=== PATIENT | male | born 1950 | race Caucasian/White ===

== ENCOUNTER → 2024-07-20 | Outpatient (CLI) | payer MEDICARE, BC, SELFPAY ==
[2024-07-20 13:06] LABS: Collection Type, Urine Clean Catch; Squamous Epithelial Cell,Urine 0 /hpf (0-5)
[2024-07-20 13:20] LABS: Basophils # (Auto) 0.1 Thou/mm3 (0.0-0.2); Basophils % (Auto) 1 % (0-2.5); Eosinophils # (Auto) 0.1 Thou/mm3 (0.0-0.5); Eosinophils % (Auto) 1 % (0-10); Hematocrit 44.1 % (41.0-53.0); Hemoglobin 14.1 g/dL (13.5-16.0); Immature Granulocytes % (Auto) 1 % (0-0); Immature Granulocytes Auto 0.08 Thou/mm3 (0.00-0.00); Lymphocytes % (Auto) 6 % (10-50); Mean Corpuscular Hemoglobin 28.3 pg (25.0-35.0); Mean Corpuscular Volume 88 fL (80-100); Monocytes # (Auto) 2.1 Thou/mm3 (0.0-0.8); Monocytes % (Auto) 14 % (0-12); Neutrophils % (Auto) 78 % (37-80); Nucleated Red Blood Cell % 0 /100 WBC (0); Platelet Count 300 Thou/mm3 (140-440); RDW Standard Deviation 46.6 fL (35.1-43.9); Red Blood Count 4.99 Miln/mm3 (4.50-5.90); White Blood Count 15.4 Thou/mm3 (3.8-10.6)
[2024-07-20 13:24] LABS: Bilirubin,Urine Negative (Negative); Blood,Urine 1+ (Negative); Clarity,Urine Clear (Clear/Hazy); Color,Urine Lt-Yellow (Lt Yel-Yel); Glucose, Urine Negative (Negative); Ketones,Urine Negative (Negative); Leukocyte Esterase,Urine Negative (Negative); Nitrite,Urine Negative (Negative); Protein,Urine Negative (Neg - Trace); RBC,Urine 16 /hpf (0-3); Specific Gravity,Urine 1.018 (1.001-1.035); Urobilinogen,Urine Negative mg/dL (0.0-1.0); WBC,Urine 1 /hpf (0-5)
[2024-07-20 13:31] LABS: Alanine Aminotransferase 17 U/L (10-49); Albumin, Serum 4.7 gm/dL (3.4-4.8); Albumin/Globulin Ratio 2.5 (1.2-2.2); Alkaline Phosphatase 81 U/L (46-116); Anion Gap 5 (7-16); BUN/Creatinine Ratio 17 Ratio (12-20); Bilirubin,Total 0.6 mg/dL (0.3-1.2); Blood Urea Nitrogen 29 mg/dL (9-23); Calcium 9.7 mg/dL (8.3-10.6); Calcium (Corrected) 9.7 mg/dL (8.5-10.1); Carbon Dioxide 28.9 mMol/L (20.0-31.0); Chloride 100 mMol/L (98-107); Cholesterol 171 mg/dL (132-200); Creatinine (Component) 1.7 mg/dL (0.6-1.3); Globulin 1.9 gm/dL (2.3-3.5); Glucose 111 mg/dL (74-106); Glucose Estimated Average 117 mg/dL (80-131); HDL Cholesterol 34 mg/dL (40-60); Hemoglobin A1C 5.7 % Hgb (4.8-6.0); LDL Cholesterol,Calculated 89 mg/dL (0-130); Osmolality,Calculated 275 (275-295); Potassium 4.5 mMol/L (3.4-5.1); Sodium 134 mMol/L (136-145); Total Protein 6.6 gm/dL (5.7-8.2); Triglycerides 240 mg/dL (30-150); eGFR 42 See Note
[2024-07-20 13:41] LABS: Aspartate Amino Transferase 14 U/L (0-34)
== END | disposition home or self-care (01) ==
LOC: COPL 12:29
PROVIDERS: PCP Internal Medicine; Referring Provider Internal Medicine; Visit Provider Internal Medicine
DX: N17.9 Acute kidney failure, unspecified (principal); I10 Essential (primary) hypertension; E78.5 Hyperlipidemia, unspecified; R73.03 Prediabetes
CPT/HCPCS: 36415; 80053; 80061; 81001; 83036; 85025

== ENCOUNTER → 2024-08-02 | Outpatient (CLI) | payer MEDICARE, BC, SELFPAY ==
--- NOTE | 2024-08-02 10:15 | XR_ITS ---
Examination: Retroperitoneal ultrasound, complete Technique: Multiple high resolution grayscale images of the retroperitoneum obtained, including kidneys and bladder. Exam date and time:August 02, 2024 1106 hours Comparison December 30, 2022 INDICATIONS: History left renal cancer, nephrectomy one year ago FINDINGS: Right kidney 14.4 x 5.8 x 6.0 cm renal cortex 1.9 cm Moderate renal parenchymal scar formation Multiple benign cysts, the largest in the lower pole 4.4 x 4.2 x 4.0 cm Absent left kidney No bladder mass or bladder calculi Bladder prevoid volume 387 cc postvoid volume 78 cc Prostate 4.3 x 3.9 x 5.1 cm: 44 cc no prostate nodules IMPRESSION: Benign right renal cysts Moderate right renal parenchymal scar formation Absent left kidney Moderate prostatomegaly
== END | disposition home or self-care (01) ==
PROVIDERS: PCP Internal Medicine; Referring Provider Internal Medicine; Visit Provider Internal Medicine
DX: N28.1 Cyst of kidney, acquired (principal); N28.89 Other specified disorders of kidney and ureter; N40.0 Benign prostatic hyperplasia without lower urinary tract symptoms; Z90.5 Acquired absence of kidney
CPT/HCPCS: 76770

== ENCOUNTER → 2024-09-07 | Outpatient (CLI) | payer MEDICARE, BC, SELFPAY ==
[2024-09-07 11:32] LABS: Basophils # (Auto) 0.1 Thou/mm3 (0.0-0.2); Basophils % (Auto) 2 % (0-2.5); Eosinophils # (Auto) 0.2 Thou/mm3 (0.0-0.5); Eosinophils % (Auto) 3 % (0-10); Hematocrit 43.4 % (41.0-53.0); Immature Granulocytes % (Auto) 1 % (0-0); Immature Granulocytes Auto 0.04 Thou/mm3 (0.00-0.00); Lymphocytes # (Auto) 0.9 Thou/mm3 (1.0-4.8); Lymphocytes % (Auto) 12 % (10-50); Mean Corpuscular HGB Conc 32.3 g/dl (31.0-37.0); Mean Corpuscular Hemoglobin 27.8 pg (25.0-35.0); Mean Corpuscular Volume 86 fL (80-100); Monocytes # (Auto) 0.9 Thou/mm3 (0.0-0.8); Monocytes % (Auto) 13 % (0-12); Neutrophils % (Auto) 71 % (37-80); Nucleated Red Blood Cell % 0 /100 WBC (0); Platelet Count 297 Thou/mm3 (140-440); RDW Standard Deviation 48.8 fL (35.1-43.9); Red Blood Count 5.03 Miln/mm3 (4.50-5.90); White Blood Count 7.1 Thou/mm3 (3.8-10.6)
[2024-09-07 12:02] LABS: Alanine Aminotransferase 19 U/L (10-49); Albumin, Serum 4.5 gm/dL (3.4-4.8); Albumin/Globulin Ratio 2.5 (1.2-2.2); Alkaline Phosphatase 74 U/L (46-116); Anion Gap 9 (7-16); Aspartate Amino Transferase 14 U/L (0-34); BUN/Creatinine Ratio 20 Ratio (12-20); Bilirubin,Total 0.7 mg/dL (0.3-1.2); Blood Urea Nitrogen 34 mg/dL (9-23); Calcium 9.9 mg/dL (8.3-10.6); Calcium (Corrected) 9.9 mg/dL (8.5-10.1); Carbon Dioxide 28.1 mMol/L (20.0-31.0); Chloride 102 mMol/L (98-107); Creatinine (Component) 1.7 mg/dL (0.6-1.3); Globulin 1.8 gm/dL (2.3-3.5); Glucose 111 mg/dL (74-106); Osmolality,Calculated 286 (275-295); Potassium 4.4 mMol/L (3.4-5.1); Sodium 139 mMol/L (136-145); Total Protein 6.3 gm/dL (5.7-8.2); eGFR 42 See Note
[2024-09-17 13:49] LABS: Immunoglobulin G 773 mg/dL (600-1540)
[2024-09-19 06:58] LABS: Immunoglobulin A 24 mg/dL (70-320); Immunoglobulin M 8 mg/dL (50-300)
== END | disposition home or self-care (01) ==
LOC: COPL 10:31
PROVIDERS: PCP Internal Medicine; Referring Provider Internal Medicine Hematology & Oncology; Visit Provider Internal Medicine Hematology & Oncology
DX: C91.10 Chronic lymphocytic leukemia of B-cell type not having achieved remission (principal)
CPT/HCPCS: 36415; 80053; 82784; 85025

== ENCOUNTER → 2024-09-21 | Outpatient (CLI) | payer MEDICARE, BC, SELFPAY ==
[2024-09-21 14:05] LABS: Basophils # (Auto) 0.1 Thou/mm3 (0.0-0.2); Basophils % (Auto) 1 % (0-2.5); Eosinophils # (Auto) 0.2 Thou/mm3 (0.0-0.5); Eosinophils % (Auto) 2 % (0-10); Hematocrit 42.7 % (41.0-53.0); Hemoglobin 13.8 g/dL (13.5-16.0); Immature Granulocytes % (Auto) 0 % (0-0); Immature Granulocytes Auto 0.03 Thou/mm3 (0.00-0.00); Lymphocytes # (Auto) 1.1 Thou/mm3 (1.0-4.8); Lymphocytes % (Auto) 17 % (10-50); Mean Corpuscular HGB Conc 32.3 g/dl (31.0-37.0); Mean Corpuscular Hemoglobin 27.9 pg (25.0-35.0); Mean Corpuscular Volume 86 fL (80-100); Monocytes # (Auto) 0.9 Thou/mm3 (0.0-0.8); Monocytes % (Auto) 13 % (0-12); Neutrophils # (Auto) 4.6 Thou/mm3 (1.8-7.7); Neutrophils % (Auto) 67 % (37-80); Nucleated Red Blood Cell % 0 /100 WBC (0); Platelet Count 310 Thou/mm3 (140-440); RDW Standard Deviation 48.2 fL (35.1-43.9); Red Blood Count 4.95 Miln/mm3 (4.50-5.90); White Blood Count 6.8 Thou/mm3 (3.8-10.6)
[2024-09-21 14:13] LABS: Alanine Aminotransferase 23 U/L (10-49); Albumin, Serum 4.6 gm/dL (3.4-4.8); Albumin/Globulin Ratio 2.3 (1.2-2.2); Alkaline Phosphatase 83 U/L (46-116); Anion Gap 8 (7-16); Aspartate Amino Transferase 16 U/L (0-34); BUN/Creatinine Ratio 16 Ratio (12-20); Bilirubin,Total 0.5 mg/dL (0.3-1.2); Blood Urea Nitrogen 26 mg/dL (9-23); Calcium 9.6 mg/dL (8.3-10.6); Calcium (Corrected) 9.6 mg/dL (8.5-10.1); Chloride 101 mMol/L (98-107); Creatinine (Component) 1.6 mg/dL (0.6-1.3); Glucose 118 mg/dL (74-106); Osmolality,Calculated 281 (275-295); Potassium 4.3 mMol/L (3.4-5.1); Sodium 138 mMol/L (136-145); Total Protein 6.6 gm/dL (5.7-8.2); eGFR 45 See Note
[2024-09-29 08:52] LABS: Immunoglobulin G 882 mg/dL (600-1540)
[2024-09-30 06:44] LABS: Immunoglobulin A 26 mg/dL (70-320); Immunoglobulin M 8 mg/dL (50-300)
== END | disposition home or self-care (01) ==
LOC: COPL 13:06
PROVIDERS: PCP Internal Medicine; Referring Provider Internal Medicine Hematology & Oncology; Visit Provider Internal Medicine Hematology & Oncology
DX: C91.10 Chronic lymphocytic leukemia of B-cell type not having achieved remission (principal)
CPT/HCPCS: 36415; 80053; 82784; 85025

== ENCOUNTER → 2024-09-28 | Outpatient (CLI) | payer MEDICARE, BC, SELFPAY ==
[2024-09-28 13:26] LABS: Alanine Aminotransferase 18 U/L (10-49); Albumin, Serum 4.8 gm/dL (3.4-4.8); Albumin/Globulin Ratio 2.4 (1.2-2.2); Alkaline Phosphatase 92 U/L (46-116); Anion Gap 9 (7-16); Aspartate Amino Transferase 15 U/L (0-34); BUN/Creatinine Ratio 16 Ratio (12-20); Bilirubin,Total 0.7 mg/dL (0.3-1.2); Blood Urea Nitrogen 29 mg/dL (9-23); Calcium 10.1 mg/dL (8.3-10.6); Calcium (Corrected) 10.1 mg/dL (8.5-10.1); Carbon Dioxide 29.5 mMol/L (20.0-31.0); Chloride 99 mMol/L (98-107); Creatinine (Component) 1.8 mg/dL (0.6-1.3); Glucose 100 mg/dL (74-106); Osmolality,Calculated 279 (275-295); Potassium 4.4 mMol/L (3.4-5.1); Sodium 137 mMol/L (136-145); Total Protein 6.8 gm/dL (5.7-8.2); eGFR 39 See Note
[2024-09-28 13:56] LABS: Basophils # (Auto) 0.1 Thou/mm3 (0.0-0.2); Basophils % (Auto) 1 % (0-2.5); Eosinophils # (Auto) 0.2 Thou/mm3 (0.0-0.5); Eosinophils % (Auto) 2 % (0-10); Hematocrit 45.4 % (41.0-53.0); Hemoglobin 14.5 g/dL (13.5-16.0); Immature Granulocytes % (Auto) 1 % (0-0); Immature Granulocytes Auto 0.07 Thou/mm3 (0.00-0.00); Lymphocytes % (Auto) 11 % (10-50); Mean Corpuscular HGB Conc 31.9 g/dl (31.0-37.0); Mean Corpuscular Hemoglobin 28.3 pg (25.0-35.0); Mean Corpuscular Volume 89 fL (80-100); Monocytes # (Auto) 1.5 Thou/mm3 (0.0-0.8); Monocytes % (Auto) 16 % (0-12); Neutrophils # (Auto) 6.6 Thou/mm3 (1.8-7.7); Neutrophils % (Auto) 70 % (37-80); Nucleated Red Blood Cell % 0 /100 WBC (0); Platelet Count 354 Thou/mm3 (140-440); RDW Standard Deviation 49.7 fL (35.1-43.9); Red Blood Count 5.13 Miln/mm3 (4.50-5.90); White Blood Count 9.5 Thou/mm3 (3.8-10.6)
[2024-10-07 07:02] LABS: Immunoglobulin G 817 mg/dL (600-1540)
[2024-10-10 06:37] LABS: Immunoglobulin A 25 mg/dL (70-320); Immunoglobulin M 8 mg/dL (50-300)
== END | disposition home or self-care (01) ==
LOC: COPL 11:24
PROVIDERS: PCP Internal Medicine; Referring Provider Internal Medicine Hematology & Oncology; Visit Provider Internal Medicine Hematology & Oncology
DX: C91.10 Chronic lymphocytic leukemia of B-cell type not having achieved remission (principal)
CPT/HCPCS: 36415; 80053; 82784; 85025

== ENCOUNTER → 2024-10-19 | Outpatient (CLI) | payer MEDICARE, BC, SELFPAY ==
[2024-10-19 10:36] LABS: Basophils # (Auto) 0.1 Thou/mm3 (0.0-0.2); Basophils % (Auto) 1 % (0-2.5); Eosinophils # (Auto) 0.2 Thou/mm3 (0.0-0.5); Eosinophils % (Auto) 2 % (0-10); Hemoglobin 13.9 g/dL (13.5-16.0); Immature Granulocytes % (Auto) 1 % (0-0); Immature Granulocytes Auto 0.04 Thou/mm3 (0.00-0.00); Lymphocytes # (Auto) 1.3 Thou/mm3 (1.0-4.8); Lymphocytes % (Auto) 15 % (10-50); Mean Corpuscular HGB Conc 32.3 g/dl (31.0-37.0); Mean Corpuscular Hemoglobin 28.3 pg (25.0-35.0); Mean Corpuscular Volume 88 fL (80-100); Monocytes # (Auto) 1.1 Thou/mm3 (0.0-0.8); Monocytes % (Auto) 12 % (0-12); Neutrophils # (Auto) 6.1 Thou/mm3 (1.8-7.7); Neutrophils % (Auto) 69 % (37-80); Nucleated Red Blood Cell % 0 /100 WBC (0); Platelet Count 301 Thou/mm3 (140-440); RDW Standard Deviation 52.2 fL (35.1-43.9); Red Blood Count 4.91 Miln/mm3 (4.50-5.90); White Blood Count 8.8 Thou/mm3 (3.8-10.6)
[2024-10-19 10:50] LABS: Alanine Aminotransferase 15 U/L (10-49); Albumin, Serum 4.4 gm/dL (3.4-4.8); Albumin/Globulin Ratio 2.1 (1.2-2.2); Alkaline Phosphatase 83 U/L (46-116); Anion Gap 8 (7-16); Aspartate Amino Transferase 16 U/L (0-34); BUN/Creatinine Ratio 12 Ratio (12-20); Bilirubin,Total 0.8 mg/dL (0.3-1.2); Blood Urea Nitrogen 17 mg/dL (9-23); Calcium 10.3 mg/dL (8.3-10.6); Calcium (Corrected) 10.3 mg/dL (8.5-10.1); Carbon Dioxide 29.3 mMol/L (20.0-31.0); Chloride 106 mMol/L (98-107); Creatinine (Component) 1.4 mg/dL (0.6-1.3); Globulin 2.1 gm/dL (2.3-3.5); Glucose 103 mg/dL (74-106); Osmolality,Calculated 286 (275-295); Potassium 4.5 mMol/L (3.4-5.1); Sodium 143 mMol/L (136-145); Total Protein 6.5 gm/dL (5.7-8.2); eGFR 53 See Note
[2024-10-28 06:23] LABS: IgA, Serum* 24 mg/dL (70-320); IgG, Serum* 776 mg/dL (600-1540); IgM, Serum* 10 mg/dL (50-300)
== END | disposition home or self-care (01) ==
LOC: COPL 08:59
PROVIDERS: PCP Internal Medicine; Referring Provider Internal Medicine Hematology & Oncology; Visit Provider Internal Medicine Hematology & Oncology
DX: C91.10 Chronic lymphocytic leukemia of B-cell type not having achieved remission (principal)
CPT/HCPCS: 36415; 80053; 82784; 85025

== ENCOUNTER → 2024-11-09 | Outpatient (CLI) | payer MEDICARE, BC, SELFPAY ==
[2024-11-09 11:15] LABS: Basophils # (Auto) 0.1 Thou/mm3 (0.0-0.2); Basophils % (Auto) 1 % (0-2.5); Eosinophils # (Auto) 0.2 Thou/mm3 (0.0-0.5); Eosinophils % (Auto) 2 % (0-10); Hematocrit 44.6 % (41.0-53.0); Hemoglobin 13.8 g/dL (13.5-16.0); Immature Granulocytes % (Auto) 0 % (0-0); Immature Granulocytes Auto 0.03 Thou/mm3 (0.00-0.00); Lymphocytes # (Auto) 3.5 Thou/mm3 (1.0-4.8); Lymphocytes % (Auto) 35 % (10-50); Mean Corpuscular HGB Conc 30.9 g/dl (31.0-37.0); Mean Corpuscular Volume 91 fL (80-100); Monocytes % (Auto) 10 % (0-12); Neutrophils # (Auto) 5.3 Thou/mm3 (1.8-7.7); Neutrophils % (Auto) 52 % (37-80); Nucleated Red Blood Cell % 0 /100 WBC (0); Platelet Count 267 Thou/mm3 (140-440); RDW Standard Deviation 52.6 fL (35.1-43.9); Red Blood Count 4.93 Miln/mm3 (4.50-5.90); White Blood Count 10.1 Thou/mm3 (3.8-10.6)
[2024-11-09 11:35] LABS: Alanine Aminotransferase 13 U/L (10-49); Albumin, Serum 4.3 gm/dL (3.4-4.8); Albumin/Globulin Ratio 2.4 (1.2-2.2); Alkaline Phosphatase 73 U/L (46-116); Anion Gap 6 (7-16); Aspartate Amino Transferase 15 U/L (0-34); BUN/Creatinine Ratio 10 Ratio (12-20); Bilirubin,Total 0.9 mg/dL (0.3-1.2); Blood Urea Nitrogen 16 mg/dL (9-23); Carbon Dioxide 28.9 mMol/L (20.0-31.0); Chloride 103 mMol/L (98-107); Creatinine (Component) 1.6 mg/dL (0.6-1.3); Globulin 1.8 gm/dL (2.3-3.5); Glucose 109 mg/dL (74-106); Osmolality,Calculated 277 (275-295); Potassium 4.8 mMol/L (3.4-5.1); Sodium 138 mMol/L (136-145); Total Protein 6.1 gm/dL (5.7-8.2); eGFR 45 See Note
[2024-11-18 07:05] LABS: Immunoglobulin G 783 mg/dL (600-1540)
[2024-11-21 06:53] LABS: Immunoglobulin A 27 mg/dL (70-320); Immunoglobulin M 10 mg/dL (50-300)
== END | disposition home or self-care (01) ==
LOC: COPL 09:57
PROVIDERS: PCP Internal Medicine; Referring Provider Internal Medicine Hematology & Oncology; Visit Provider Internal Medicine Hematology & Oncology
DX: C91.10 Chronic lymphocytic leukemia of B-cell type not having achieved remission (principal)
CPT/HCPCS: 36415; 80053; 82784; 85025

== ENCOUNTER → 2024-12-06 | Outpatient (CLI) | payer MEDICARE, BC, SELFPAY ==
[2024-12-06 12:19] LABS: Basophils # (Auto) 0.2 Thou/mm3 (0.0-0.2); Basophils % (Auto) 1 % (0-2.5); Eosinophils # (Auto) 0.3 Thou/mm3 (0.0-0.5); Eosinophils % (Auto) 2 % (0-10); Hematocrit 44.4 % (41.0-53.0); Hemoglobin 14.3 g/dL (13.5-16.0); Immature Granulocytes % (Auto) 0 % (0-0); Immature Granulocytes Auto 0.05 Thou/mm3 (0.00-0.00); Lymphocytes % (Auto) 30 % (10-50); Mean Corpuscular HGB Conc 32.2 g/dl (31.0-37.0); Mean Corpuscular Hemoglobin 27.7 pg (25.0-35.0); Mean Corpuscular Volume 86 fL (80-100); Monocytes # (Auto) 2.1 Thou/mm3 (0.0-0.8); Monocytes % (Auto) 15 % (0-12); Neutrophils % (Auto) 51 % (37-80); Nucleated Red Blood Cell % 0 /100 WBC (0); Platelet Count 272 Thou/mm3 (140-440); RDW Standard Deviation 45.8 fL (35.1-43.9); Red Blood Count 5.17 Miln/mm3 (4.50-5.90); White Blood Count 13.6 Thou/mm3 (3.8-10.6)
[2024-12-06 12:33] LABS: Alanine Aminotransferase 15 U/L (10-49); Albumin, Serum 4.3 gm/dL (3.4-4.8); Alkaline Phosphatase 118 U/L (46-116); Anion Gap 7 (7-16); Aspartate Amino Transferase 15 U/L (0-34); BUN/Creatinine Ratio 15 Ratio (12-20); Bilirubin,Total 0.7 mg/dL (0.3-1.2); Blood Urea Nitrogen 26 mg/dL (9-23); Calcium 9.8 mg/dL (8.3-10.6); Calcium (Corrected) 9.8 mg/dL (8.5-10.1); Carbon Dioxide 29.3 mMol/L (20.0-31.0); Chloride 101 mMol/L (98-107); Creatinine (Component) 1.7 mg/dL (0.6-1.3); Globulin 2.1 gm/dL (2.3-3.5); Glucose 106 mg/dL (74-106); Osmolality,Calculated 278 (275-295); Potassium 4.6 mMol/L (3.4-5.1); Sodium 137 mMol/L (136-145); Total Protein 6.4 gm/dL (5.7-8.2); eGFR 42 See Note
[2024-12-10 08:50] LABS: Immunoglobulin G 774 mg/dL (600-1540)
[2024-12-12 06:44] LABS: Immunoglobulin A 28 mg/dL (70-320); Immunoglobulin M 18 mg/dL (50-300)
== END | disposition home or self-care (01) ==
LOC: COPL 11:29
PROVIDERS: PCP Internal Medicine; Referring Provider Internal Medicine Hematology & Oncology; Visit Provider Internal Medicine Hematology & Oncology
DX: C91.10 Chronic lymphocytic leukemia of B-cell type not having achieved remission (principal)
CPT/HCPCS: 36415; 80053; 82784; 85025

== ENCOUNTER → 2024-12-27 | Outpatient (CLI) | payer MEDICARE, BC, SELFPAY ==
[2024-12-27 11:53] LABS: Basophils # (Auto) 0.2 Thou/mm3 (0.0-0.2); Basophils % (Auto) 1 % (0-2.5); Eosinophils # (Auto) 0.5 Thou/mm3 (0.0-0.5); Eosinophils % (Auto) 3 % (0-10); Hemoglobin 14.4 g/dL (13.5-16.0); Immature Granulocytes % (Auto) 0 % (0-0); Immature Granulocytes Auto 0.08 Thou/mm3 (0.00-0.00); Lymphocytes # (Auto) 6.5 Thou/mm3 (1.0-4.8); Lymphocytes % (Auto) 36 % (10-50); Mean Corpuscular Hemoglobin 27.7 pg (25.0-35.0); Mean Corpuscular Volume 87 fL (80-100); Monocytes # (Auto) 3.7 Thou/mm3 (0.0-0.8); Monocytes % (Auto) 20 % (0-12); Neutrophils # (Auto) 7.3 Thou/mm3 (1.8-7.7); Neutrophils % (Auto) 40 % (37-80); Nucleated Red Blood Cell % 0 /100 WBC (0); Platelet Count 295 Thou/mm3 (140-440); RDW Standard Deviation 46.1 fL (35.1-43.9); Red Blood Count 5.19 Miln/mm3 (4.50-5.90); White Blood Count 18.3 Thou/mm3 (3.8-10.6)
[2024-12-27 12:46] LABS: Alanine Aminotransferase 23 U/L (10-49); Albumin, Serum 4.8 gm/dL (3.4-4.8); Albumin/Globulin Ratio 2.3 (1.2-2.2); Alkaline Phosphatase 98 U/L (46-116); Anion Gap 6 (7-16); Aspartate Amino Transferase 18 U/L (0-34); Bilirubin,Total 0.5 mg/dL (0.3-1.2); Blood Urea Nitrogen 29 mg/dL (9-23); Calcium 9.7 mg/dL (8.3-10.6); Calcium (Corrected) 9.7 mg/dL (8.5-10.1); Carbon Dioxide 30.1 mMol/L (20.0-31.0); Chloride 100 mMol/L (98-107); Globulin 2.1 gm/dL (2.3-3.5); Glucose 96 mg/dL (74-106); Osmolality,Calculated 277 (275-295); Potassium 4.3 mMol/L (3.4-5.1); Sodium 136 mMol/L (136-145); Total Protein 6.9 gm/dL (5.7-8.2)
[2024-12-27 13:01] LABS: BUN/Creatinine Ratio 16 Ratio (12-20); Creatinine (Component) 1.8 mg/dL (0.6-1.3); eGFR 39 See Note
[2024-12-27 13:09] LABS: Path Review Blood Smear Sent to Pathologist
[2024-12-30 22:05] LABS: Immunoglobulin G 852 mg/dL (600-1540)
[2025-01-02 07:17] LABS: Immunoglobulin A 29 mg/dL (70-320); Immunoglobulin M 26 mg/dL (50-300)
== END | disposition home or self-care (01) ==
LOC: COPL 11:07
PROVIDERS: PCP Internal Medicine; Referring Provider Internal Medicine Hematology & Oncology; Visit Provider Internal Medicine Hematology & Oncology
DX: C91.10 Chronic lymphocytic leukemia of B-cell type not having achieved remission (principal)
CPT/HCPCS: 36415; 80053; 82784; 85025

== ENCOUNTER → 2025-01-17 | Outpatient (CLI) | payer MEDICARE, BC, SELFPAY ==
[2025-01-17 12:23] LABS: Basophils # (Auto) 0.1 Thou/mm3 (0.0-0.2); Basophils % (Auto) 1 % (0-2.5); Eosinophils # (Auto) 0.2 Thou/mm3 (0.0-0.5); Eosinophils % (Auto) 2 % (0-10); Hematocrit 43.6 % (41.0-53.0); Hemoglobin 13.9 g/dL (13.5-16.0); Immature Granulocytes % (Auto) 1 % (0-0); Immature Granulocytes Auto 0.14 Thou/mm3 (0.00-0.00); Lymphocytes # (Auto) 2.7 Thou/mm3 (1.0-4.8); Lymphocytes % (Auto) 26 % (10-50); Mean Corpuscular HGB Conc 31.9 g/dl (31.0-37.0); Mean Corpuscular Hemoglobin 27.8 pg (25.0-35.0); Mean Corpuscular Volume 87 fL (80-100); Monocytes # (Auto) 0.9 Thou/mm3 (0.0-0.8); Monocytes % (Auto) 9 % (0-12); Neutrophils # (Auto) 6.4 Thou/mm3 (1.8-7.7); Neutrophils % (Auto) 61 % (37-80); Nucleated Red Blood Cell % 0 /100 WBC (0); Platelet Count 269 Thou/mm3 (140-440); RDW Standard Deviation 47.3 fL (35.1-43.9); White Blood Count 10.4 Thou/mm3 (3.8-10.6)
[2025-01-17 12:35] LABS: Alanine Aminotransferase 16 U/L (10-49); Albumin, Serum 4.4 gm/dL (3.4-4.8); Albumin/Globulin Ratio 2.1 (1.2-2.2); Alkaline Phosphatase 91 U/L (46-116); Anion Gap 6 (7-16); Aspartate Amino Transferase 15 U/L (0-34); BUN/Creatinine Ratio 11 Ratio (12-20); Bilirubin,Total 0.7 mg/dL (0.3-1.2); Blood Urea Nitrogen 20 mg/dL (9-23); Calcium 8.9 mg/dL (8.3-10.6); Calcium (Corrected) 8.9 mg/dL (8.5-10.1); Chloride 104 mMol/L (98-107); Creatinine (Component) 1.8 mg/dL (0.6-1.3); Globulin 2.1 gm/dL (2.3-3.5); Glucose 103 mg/dL (74-106); Osmolality,Calculated 282 (275-295); Potassium 4.1 mMol/L (3.4-5.1); Sodium 140 mMol/L (136-145); Total Protein 6.5 gm/dL (5.7-8.2); eGFR 39 See Note
[2025-01-20 22:04] LABS: Immunoglobulin G 860 mg/dL (600-1540)
[2025-01-24 06:58] LABS: Immunoglobulin A 29 mg/dL (70-320); Immunoglobulin M 25 mg/dL (50-300)
== END | disposition home or self-care (01) ==
LOC: COPL 10:58
PROVIDERS: PCP Internal Medicine; Referring Provider Internal Medicine Hematology & Oncology; Visit Provider Internal Medicine Hematology & Oncology
DX: C91.10 Chronic lymphocytic leukemia of B-cell type not having achieved remission (principal)
CPT/HCPCS: 36415; 80053; 82784; 85025

== ENCOUNTER → 2025-02-09 | Outpatient (CLI) | payer MEDICARE, BC, SELFPAY ==
[2025-02-09 11:38] LABS: Basophils # (Auto) 0.3 Thou/mm3 (0.0-0.2); Basophils % (Auto) 1 % (0-2.5); Eosinophils # (Auto) 0.6 Thou/mm3 (0.0-0.5); Eosinophils % (Auto) 2 % (0-10); Hematocrit 40.4 % (41.0-53.0); Hemoglobin 12.8 g/dL (13.5-16.0); Immature Granulocytes % (Auto) 1 % (0-0); Immature Granulocytes Auto 0.17 Thou/mm3 (0.00-0.00); Lymphocytes # (Auto) 15.5 Thou/mm3 (1.0-4.8); Lymphocytes % (Auto) 58 % (10-50); Mean Corpuscular HGB Conc 31.7 g/dl (31.0-37.0); Mean Corpuscular Hemoglobin 27.4 pg (25.0-35.0); Mean Corpuscular Volume 86 fL (80-100); Monocytes # (Auto) 3.1 Thou/mm3 (0.0-0.8); Monocytes % (Auto) 12 % (0-12); Neutrophils # (Auto) 7.1 Thou/mm3 (1.8-7.7); Neutrophils % (Auto) 27 % (37-80); Nucleated Red Blood Cell % 0 /100 WBC (0); Platelet Count 477 Thou/mm3 (140-440); Red Blood Count 4.68 Miln/mm3 (4.50-5.90); White Blood Count 26.7 Thou/mm3 (3.8-10.6)
[2025-02-09 11:47] LABS: Partial Thromboplastin Time 24.1 Seconds (22.0-36.0); Prothrombin Time 10.8 Seconds (9.0-12.2)
--- NOTE | 2025-02-09 11:53 | EKG_ITS ---
[facility] Test Date: 2025-02-09 Pat Name: ESTEVAN HOLT Department: Room: - Gender: Male Addictions Counselor Assistant: SYLVIA : 1950 Requested By: Regulo Wagoner Order Number: [id number] Reading MD: Regulo Wagoner Measurements Intervals [place] Rate: 70 P: 56 MO: 190 QRS: 2 QRSD: 102 T: -14 QT: 391 QTc: 424 Interpretive Statements SINUS RHYTHM POSSIBLE LEFT VENTRICULAR HYPERTROPHY [VOLTAGE CRITERIA PLUS LAE OR QRS WIDENING] No previous ECG available for comparison /store/S0/[id number]/ecg/[id number].pdf
[2025-02-09 12:04] LABS: Alanine Aminotransferase 12 U/L (10-49); Albumin, Serum 4.2 gm/dL (3.4-4.8); Albumin/Globulin Ratio 2.2 (1.2-2.2); Alkaline Phosphatase 112 U/L (46-116); Anion Gap 10 (7-16); BUN/Creatinine Ratio 16 Ratio (12-20); Bilirubin,Total 0.7 mg/dL (0.3-1.2); Blood Urea Nitrogen 26 mg/dL (9-23); Calcium 9.7 mg/dL (8.3-10.6); Calcium (Corrected) 9.7 mg/dL (8.5-10.1); Carbon Dioxide 28.6 mMol/L (20.0-31.0); Chloride 102 mMol/L (98-107); Creatinine (Component) 1.6 mg/dL (0.6-1.3); Globulin 1.9 gm/dL (2.3-3.5); Glucose 109 mg/dL (74-106); Osmolality,Calculated 286 (275-295); Potassium 4.8 mMol/L (3.4-5.1); Sodium 141 mMol/L (136-145); Total Protein 6.1 gm/dL (5.7-8.2); eGFR 45 See Note
== END | disposition home or self-care (01) ==
LOC: COPL 11:02
PROVIDERS: PCP Internal Medicine; Referring Provider Student in an Organized Health Care Education/Training Program; Visit Provider Student in an Organized Health Care Education/Training Program
DX: Z01.818 Encounter for other preprocedural examination (principal); I70.213 Atherosclerosis of native arteries of extremities with intermittent claudication, bilateral legs
CPT/HCPCS: 36415; 80053; 85025; 85610; 85730; 93005

== ENCOUNTER → 2025-06-08 | Outpatient (CLI) | payer MEDICARE, BC, SELFPAY ==
[2025-06-08 11:36] LABS: Basophils # (Auto) 0.6 Thou/mm3 (0.0-0.2); Basophils % (Auto) 0 % (0-2.5); Eosinophils # (Auto) 0.4 Thou/mm3 (0.0-0.5); Eosinophils % (Auto) 0 % (0-10); Hematocrit 34.7 % (41.0-53.0); Hemoglobin 10.0 g/dL (13.5-16.0); Immature Granulocytes Auto 1.60 Thou/mm3 (0.00-0.00); Lymphocytes # (Auto) 511.9 Thou/mm3 (1.0-4.8); Lymphocytes % (Auto) 74 % (10-50); Mean Corpuscular HGB Conc 28.8 g/dl (31.0-37.0); Mean Corpuscular Hemoglobin 27.9 pg (25.0-35.0); Mean Corpuscular Volume 97 fL (80-100); Monocytes # (Auto) 173.9 Thou/mm3 (0.0-0.8); Monocytes % (Auto) 25 % (0-12); Neutrophils # (Auto) 3.9 Thou/mm3 (1.8-7.7); Neutrophils % (Auto) 1 % (37-80); Nucleated Red Blood Cell # 0.57 Thou/mm3 (0.00-0.00); Nucleated Red Blood Cell % 0 /100 WBC (0); Platelet Count 184 Thou/mm3 (140-440); RDW Standard Deviation 70.8 fL (35.1-43.9); Red Blood Count 3.58 Miln/mm3 (4.50-5.90)
[2025-06-08 12:01] LABS: White Blood Count 750.0 Thou/mm3 (3.8-10.6)
[2025-06-08 12:24] LABS: Path Review Blood Smear Sent to Pathologist
== END | disposition home or self-care (01) ==
LOC: COPL 10:17
PROVIDERS: PCP Internal Medicine; Referring Provider Internal Medicine Cardiovascular Disease; Visit Provider Internal Medicine Cardiovascular Disease
DX: I20.89 Other forms of angina pectoris (principal)
CPT/HCPCS: 36415; 85025

== ENCOUNTER → 2025-06-13 | Outpatient (CLI) | payer MEDICARE, BC, SELFPAY ==
[2025-06-13 08:34] LABS: Basophils # (Auto) 0.5 Thou/mm3 (0.0-0.2); Basophils % (Auto) 0 % (0-2.5); Eosinophils # (Auto) 0.4 Thou/mm3 (0.0-0.5); Eosinophils % (Auto) 0 % (0-10); Hematocrit 32.9 % (41.0-53.0); Hemoglobin 9.2 g/dL (13.5-16.0); Immature Granulocytes Auto 1.26 Thou/mm3 (0.00-0.00); Lymphocytes # (Auto) 593.8 Thou/mm3 (1.0-4.8); Lymphocytes % (Auto) 84 % (10-50); Mean Corpuscular HGB Conc 28.0 g/dl (31.0-37.0); Mean Corpuscular Hemoglobin 26.9 pg (25.0-35.0); Mean Corpuscular Volume 96 fL (80-100); Monocytes # (Auto) 105.6 Thou/mm3 (0.0-0.8); Monocytes % (Auto) 15 % (0-12); Neutrophils # (Auto) 3.2 Thou/mm3 (1.8-7.7); Neutrophils % (Auto) 0 % (37-80); Nucleated Red Blood Cell # 0.44 Thou/mm3 (0.00-0.00); Nucleated Red Blood Cell % 0 /100 WBC (0); Platelet Count 123 Thou/mm3 (140-440); RDW Standard Deviation 70.3 fL (35.1-43.9); Red Blood Count 3.42 Miln/mm3 (4.50-5.90)
[2025-06-13 09:22] LABS: Misc Send Out* See Sep Rpt
[2025-06-13 09:26] LABS: Alanine Aminotransferase 58 U/L (10-49); Albumin, Serum 4.8 gm/dL (3.4-4.8); Albumin/Globulin Ratio 2.1 (1.2-2.2); Alkaline Phosphatase 301 U/L (46-116); Anion Gap 11 (7-16); Aspartate Amino Transferase 47 U/L (0-34); BUN/Creatinine Ratio 10 Ratio (12-20); Bilirubin,Total 0.6 mg/dL (0.3-1.2); Blood Urea Nitrogen 22 mg/dL (9-23); Calcium 10.4 mg/dL (8.3-10.6); Calcium (Corrected) 10.4 mg/dL (8.5-10.1); Carbon Dioxide 26.7 mMol/L (20.0-31.0); Cardiac Risk Estimate 7.4 RATIO (4.0-6.7); Chloride 105 mMol/L (98-107); Cholesterol 184 mg/dL (132-200); Creatinine (Component) 2.2 mg/dL (0.6-1.3); Globulin 2.3 gm/dL (2.3-3.5); Glucose 113 mg/dL (74-106); HDL Cholesterol 25 mg/dL (40-60); Osmolality,Calculated 289 (275-295); Potassium 3.8 mMol/L (3.4-5.1); Sodium 143 mMol/L (136-145); Thyroid Stimulating Hormone 2.28 uIU/mL (0.55-4.78); Total Protein 7.1 gm/dL (5.7-8.2); Uric Acid 10.4 mg/dL (3.7-9.2); eGFR 31 See Note
[2025-06-13 09:39] LABS: White Blood Count 680.4 Thou/mm3 (3.8-10.6)
[2025-06-13 11:01] LABS: LDL Cholesterol,Calculated 120 mg/dL (0-130); Triglycerides 194 mg/dL (30-150)
[2025-06-13 11:30] LABS: PSA Medicare Annual Scrn 0.25 ng/mL (0-4.00)
[2025-06-13 11:37] LABS: Vitamin B12 449 pg/mL (211-911); Vitamin D 25 Hydroxy Total 34.7 ng/mL (7.3-40.2)
[2025-06-13 11:50] LABS: Path Review Blood Smear Sent to Pathologist
== END | disposition home or self-care (01) ==
LOC: COPL 07:55
PROVIDERS: PCP Internal Medicine; Referring Provider Internal Medicine; Visit Provider Internal Medicine Cardiovascular Disease
DX: C91.10 Chronic lymphocytic leukemia of B-cell type not having achieved remission (principal); I12.9 Hypertensive chronic kidney disease with stage 1 through stage 4 chronic kidney disease, or unspecified chronic kidney disease; N18.30 Chronic kidney disease, stage 3 unspecified; E78.5 Hyperlipidemia, unspecified; R73.03 Prediabetes; D51.9 Vitamin B12 deficiency anemia, unspecified; E55.9 Vitamin D deficiency, unspecified
CPT/HCPCS: 36415; 80053; 80061; 81001; 82306; 82607; 83036; 84153; 84443; 84550; 85025; G0103

== ENCOUNTER 2025-07-14 15:15 | Inpatient (IN) | payer MEDICARE, BC, SELFPAY ==
[2025-07-14] VITALS (15 sets, daily range): BP systolic 117–142; BP diastolic 62–74; PULSE 81–115; RESP 14–90; TEMP 38.4–39.6; O2SAT 89–97; BMI 29.8
--- NOTE | 2025-07-14 15:16 | PC.NURSE ---
PT BROUGHT IN BY EMS FOR ALTERED MENTAL STATUS AND HOT TO TOUCH. PER MEDIC FAMILY STATED THAT HE HAS BEEN DECLINING FOR THE PAST FEW DAYS BUT THIS AM PT WAS LETHARGIC AND HARD TO AROUSE. EMS STATES THAT PT HAS DEMENTIA AND IS NORMALLY CONFUSED BUT STATES PT GCS IS 11 AT THIS TIME. PT HAS HISTORY OF LEUKEMIA BUT PER EMS PT IS NOT DOING ANY TREATMENT ANY LONGER. PT IS LETHARGIC BUT OPENS EYES TO VERBAL STIMULI. PT ATTEMPTS TO ANSWER SOME QUESTIONS BUT IS NOTED TO BE CONFUSED. PT IS NOTED TO BE WEAK BUT IS MOVING ALL EXTREMITIES EQUALLY. EYES PERRL. TEMP ON ARRIVAL 103. DR GERMAIN INFORMED. PT IS ON CC MONITOR. 02 SATS ON RA 89-90%. PT PLACED ON 02 NC 3 L WITH INCREASED 02 SAT TO 93%
--- NOTE | 2025-07-14 15:21 | EDNOTE_ITS ---
Altered Mental Status RME/HPI General Chief Complaint: Altered Mental Status Stated Complaint: AMS Time Seen by Provider: 07/14/25 15:20 Arrival date/time: 07/14/25 15:15 Limitations: no limitations RME / HPI RME / HPI narrative: 75 year old male with history of dementia and leukemia (recently discontinued treatments) presents to the ED BIBA from home for altered mental status today. Per medics, family on scene reported decline in mental status in the last several days. Medics state on scene, the patient was altered GCS of 11, required sternal rubbing to wake and respond to questions, and saturating 89% on room air. State they placed the patient on 3L nasal cannula with improvement to low 90s. In the ED, patient reports I feel poorly and feeling hot. Related Data Home Medications ?Medication ?Instructions ?Recorded ?Confirmed Lactobacills gasseri-Bifidobac 1 cap PO DAILY 03/16/18 03/16/18 bifidum,longum 1.5 billion cell capsule ([employer]) alprazolam 0.5 mg tablet,extended 0.5 mg PO QDAY 03/1603/16/18 release 24 hr amlodipine 5 mg-benazepril 10 mg 1 cap PO QDAY 8 03/16/18 capsule losartan 100 1 tab PO QDAY 03/16/1803/16 mg-hydrochlorothiazide 25 mg tablet tamsulosin 0.4 mg capsule 0.4 mg PO DAILY 03/16/18 Allergies Allergy/AdvReac Type Severity Reaction Status Date / Time NKA Allergy Unknown Uncoded 07/14/25 15:22 Review of Systems Review of Systems Systems Reviewed: All systems reviewed, normal except as documented Past Medical History Past Medical History NEUROLOGIC: Positive Dementia CARDIAC: Positive Hypercholesterolemia and Hypertension GASTROINTESTINAL: Positive Diverticulitis OTHER HISTORY: Positive Chemotherapy (NO LONGER ON CHEMO) and Chicken Pox Social History SMOKING STATUS: Unknown if ever smoked ED Exam General Limitations: Present no limitations General appearance: Present in no apparent distress and other (awakens and able to respond to simple questions, complains of feeling poorly, makes poor eye contact) Head Head exam: Present atraumatic, normocephalic and normal inspection Eye Eye exam: Present normal appearance, PERRL and EOMI ENT ENT exam: Present normal exam, normal oropharynx and mucous membranes moist Neck Neck exam: Present normal inspection, full ROM and trachea midline Chest Chest inspection: Present normal inspection and symmetric chest wall rise Respiratory Respiratory exam: Present other (decreased breath sounds over right base ) Cardiovascular Cardiovascular exam: Present regular rate, normal rhythm and normal heart sounds Abdominal Exam Abdominal exam: Present soft and normal bowel sounds Extremities Exam Extremities exam: Present normal inspection and full ROM Back Exam Back exam: Present normal inspection and full ROM Neurological Exam Neurological exam: Present alert (answers some questions ), CN II-XII intact and other (stiff upper and lower extremities, non focal exam ) Psychiatric Psychiatric exam: Present normal affect and normal mood Skin Skin exam: Present warm, dry, intact and normal color Course Quality Measures Current suspected stage: sepsis Possible source: pulmonary Blood cultures orde red: completed in ED Antibiotic ordered: Yes Pertinent labs: 07/14/25 07/14/25 15:30 16:24 Lactic Acid Cancelled Procalcitonin 1.58 H ng/ml (0.0-0.49) sepsis Orders Category Date Time Status Bedside COVID-19 Antigen Test NOW Care 07/14/25 15:50 Active Bedside COVID-19 Antigen Test NOW Care 07/14/25 16:00 Completed COVID-19 Screening Questionnaire NOW Care 07/14/25 17:03 Active Hydroelectric Machinery Mechanic Helper STAT Care 07/14/25 15:35 Active Continuous Pulse Oximetry STAT Care 07/14/25 15:35 Completed Decision to Admit X1 Care 07/14/25 17:02 Active EKG (ED ONLY) *Do not use* NOW Care 07/14/25 15:33 Completed Ceja [Urinary Catheter] QS Care 07/14/25 15:49 Active Ceja to [place] Routine Care 07/14/25 15:37 Ordered IV [Insert IV] NOW Care 07/14/25 15:45 Completed Insert IV NOW Care 07/14/25 15:35 Active NPO STAT Care 07/14/25 15:35 Active Strict Intake and Output Routine Care 07/14/25 15:35 Ordered EKG (ED Only) Stat Exams 07/14/25 15:33 Draft XR chest 1V SEPSIS PROTOCOL Stat Exams 07/14/25 15:37 Completed Arterial Blood Gas Stat Lab 07/14/25 15:48 Completed B-Type Natriuretic Peptide Stat Lab 07/14/25 15:30 Received Blood Culture (Lab) Stat Lab 07/14/25 15:30 Received CBC Stat Lab 07/14/25 15:30 Results Comprehensive Metabolic Panel Stat Lab 07/14/25 15:30 Completed Influenza A & B Rapid Panel Stat Lab 07/14/25 15:50 Completed LDH (Lactate Dehydrogenase) Stat Lab 07/14/25 15:30 Completed Lipase Stat Lab 07/14/25 15:30 Completed Magnesium Stat Lab 07/14/25 15:30 Completed Partial Thromboplastin Time Stat Lab 07/14/25 15:30 Completed Path Review Blood Smear Stat Lab 07/14/25 15:30 Results Phosphorous Stat Lab 07/14/25 15:30 Completed Procalcitonin Stat Lab 07/14/25 15:30 Completed Prothrombin Time with INR Stat Lab 07/14/25 15:30 Completed Troponin I Stat Lab 07/14/25 15:30 Completed Urinalysis, C/S if Indicated Stat Lab 07/14/25 15:52 Completed Acetaminophen Ivpb [Ofirmev Inj] Med 07/14/25 15:34 Discontinued 1,000 mg in 100 ml IV X1 Ondansetron Inj [Zofran Inj] Med 07/14/25 15:34 Active 4 mg IVP Q6HR PRN Pantoprazole Inj [Protonix Inj] Med 07/14/25 15:34 Discontinued 40 mg IVP X1 ONE Ringers Lactated 1000 ml [Lactated Ringers] 2,328 ml Med 07/14/25 15:34 Discontinued IV 2,328 mls/hr cefTRIAXone [Rocephin] 1,000 mg Med 07/14/25 15:34 Discontinued SODIUM CHLORIDE 0.9% (Popper) [Ns 0.9% (P)] 50 ml IV X1 Oxygen Delivery NOW RT 07/14/25 15:35 Active Vital Signs Vital signs: Vital Signs Pulse Rate 115 H 07/14/25 15:16 Altered Mental Status MDM Narrative MDM Narrative:: I, Linnea Hubbard, am scribing for and in the presence of Dr. Skinner. [id number]: I spoke with the and cousin at bedside. We reviewed all the results, analysis, and treatment plans. I explained hospice care, and the states the patient had elected to have no CPR or further treatment for Leukemia. States the patient underwent 15 years of treatment which he discontinued 3-4 months ago. They were receptive and wanting to arrange hospice during this admission. Patient data External records reviewed:: [facility] previous records and EMS form Clinical information provided by:: patient, EMS and family Social determinants that could affect healthcare access:: none Patient has the following chronic illnesses:: dementia and leukemia (recently discontinued treatments) How is presenting disease/condition affected by chronic disease/condition?: exacerbated by Evaluation data The following diagnostics were reviewed and interpreted by me:: lab results, radiology exam(s) and EKG tracing(s) (EKG @ 15:36h, interpreted by me, sinus tachycardia, rate 110, no STEMI. ) Lab and/or radiology exams considered but not ordered:: None Interpretation Summary: Ordering Physician: Tomy Skinner MD Date of Service: 07/14/25 Procedure(s): XR chest 1V SEPSIS PROTOCOL Accession Number(s): [id number] cc: Tomy Skinner MD; Maurciio Navarro MD~ EXAMINATION: AP chest single view TECHNIQUE: AP portable semiupright chest single view Date and time: July 14, 2025, 1605 hours compared to January 24, 2012 INDICATIONS: Sepsis alert today. FINDINGS: Mild enlargement cardiac contour Prominent vascular congestion including central vascular engorgement. No lobar pneumonia. Prominent osteopenia IMPRESSION: Mild heart failure No lobar pneumonia Dictated By: Mauricio Navarro MD Signed By: <Electronically signed by Mauricio Navarro MD in OV> 07/14/25 1654 Medications / Prescriptions Medications or Prescriptions considered but not ordered:: None Medication administrations:: Medication Administration History Ondansetron HCl (Ondansetron Inj 2 Mg/Ml Inj 2 Ml) 4 mg IVP Q6HR PRN PRN Reason: NAUSEA OR VOMITING Stop: 08/13/25 15:33 Last Admin: 07/14/25 16:01 Dose: 4 mg Documented By: DO Discontinued Medications Lactated Ringer's (Lactated Ringers) 2,328 mls @ 2,328 mls/hr 30 ml/kg infuse over 60 min (2328 ml) IV .Q1H ONE Stop: 07/14/25 16:33 Last Infusion: 07/14/25 17:25 Dose: Infused Documented By: Admin: 07/14/25 15:55 Dose: 2,328 mls/hr Documented By: DO Ceftriaxone Sodium 1,000 mg/ (Sodium Chloride) 50 mls @ 100 mls/hr IV X1 ONE Stop: 07/14/25 16:03 Last Infusion: 07/14/25 16:35 Dose: Infused Documented By: Admin: 07/14/25 16:05 Dose: 100 mls/hr Documented By: DO Acetaminophen (Ofirmev Inj) 1,000 mg in 100 mls @ 250 mls/hr IV X1 ONE Stop: 07/14/25 15:57 Last Infusion: 07/14/25 16:30 Dose: Infused Documented By: Admin: 07/14/25 16:05 Dose: 250 mls/hr Documented By: DO Pantoprazole Sodium (Pantoprazole Inj 40 Mg Vial) 40 mg IVP X1 ONE Stop: 07/14/25 15:35 Last Admin: 07/14/25 16:01 Dose: 40 mg Documented By: DO See above Consultations Consultation(s) initiated? (list below): Yes Consultation #1 (Physician, Specialty, Details): I spoke with patients PCP Dr. Kasper. Discussed patients PMHx, HPI, ED course, exam findings, labs, and radiology results. She accepts the patient for admission. Time: 17:14 Diagnosis Most likely diagnosis given after review of the tests above:: Acute febrile illness Blast crisis Leukemia AMS PNA Admission Indicated Admission indicated?: indicated Admission Request Was there a request for admission?: Yes Admission Attestation Admission request attestation: Discussed case with [] from Hospitalist service regarding admission. Discussed patients ED course, exam findings, labs, and radiology results. The Hospitalist [agrees,declines] to accept the patient for admission. Disposition Plan Disposition Plan: Admit Discharge Plan Plan Patient Disposition: Admit Acute Care w/in Hospital Prescriptions/Referrals Prescriptions/Med Rec: No Action losartan-hydrochlorothiazide 100-25 mg Tablet 1 tab PO QDAY tamsulosin 0.4 mg Capsule,Extended Release 24hr 0.4 mg PO DAILY amlodipine-benazepril 5-10 mg Capsule 1 cap PO QDAY alprazolam 0.5 mg Tablet Extended Release 24 Hr 0.5 mg PO QDAY L. gasseri-B. 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
--- NOTE | 2025-07-14 15:30 | PC.NURSE ---
COOLING MEASURES APPLIED AT THIS TIME DUE TO TEMP 103
--- NOTE | 2025-07-14 15:33 | EKG_ITS ---
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
--- NOTE | 2025-07-14 15:37 | XR_ITS ---
EXAMINATION: AP chest single view TECHNIQUE: AP portable semiupright chest single view Date and time: July 14, 2025, 1605 hours compared to January 24, 2012 INDICATIONS: Sepsis alert today. FINDINGS: Mild enlargement cardiac contour Prominent vascular congestion including central vascular engorgement. No lobar pneumonia. Prominent osteopenia IMPRESSION: Mild heart failure No lobar pneumonia
[2025-07-14 15:52] LABS: Base Excess 2 (-3-3); HCO3 26 mEq/L (20-26); Inspired O2, VO2 Liters 4 L/min; O2 Saturation 86 % (91-98); PCO2 38 mmHg (32.0-48.0); pH, Arterial 7.45 (7.35-7.45)
[2025-07-14 15:54] LABS: Allen Test Performed/OK; PO2 48 mmHg (83-108); Puncture Site Site Not Noted
[2025-07-14 16:00] LABS: Collection Type, Urine Clean Catch
[2025-07-14] MEDS: ONDANSETRON INJ 2 MG/ML INJ 2 ML 4 MG IVP (16:01)
[2025-07-14 16:05] LABS: Bilirubin,Urine Negative (Negative); Blood,Urine 1+ (Negative); Clarity,Urine Clear (Clear/Hazy); Color,Urine Yellow (Lt Yel-Yel); Culture Indicated,Urine Not Indicated; Glucose, Urine Negative (Negative); Hyaline Casts,Urine < 1 /hpf (0-1); Ketones,Urine Negative (Negative); Leukocyte Esterase,Urine Negative (Negative); Nitrite,Urine Negative (Negative); PH,Urine 6.0 (5.0-7.0); Protein,Urine 1+ (Neg - Trace); RBC,Urine 15 /hpf (0-3); Specific Gravity,Urine 1.020 (1.001-1.035); Squamous Epithelial Cell,Urine < 1 /hpf (0-5); Urobilinogen,Urine 2.0 mg/dL (0.0-1.0); WBC,Urine 2 /hpf (0-5)
[2025-07-14] MEDS: cefTRIAXone 1,000 MG in SODIUM CHLORIDE 0.9% (Popper) 50 ML 100 MG IV (16:05)
[2025-07-14] MEDS: ACETAMINOPHEN IVPB 1,000 MG/100 ML VIAL 250 MG IV (16:05)
[2025-07-14 16:06] LABS: Hematocrit 29.8 % (41.0-53.0); Mean Corpuscular HGB Conc 26.2 g/dl (31.0-37.0); Mean Corpuscular Hemoglobin 26.4 pg (25.0-35.0); Mean Corpuscular Volume 101 fL (80-100); Platelet Count 136 Thou/mm3 (140-440); RDW Standard Deviation 70.6 fL (35.1-43.9); Red Blood Count 2.95 Miln/mm3 (4.50-5.90)
--- NOTE | 2025-07-14 16:08 | PC.NURSE ---
X-RAY AT BEDSIDE
[2025-07-14 16:20] LABS: INR 1.0 (0.9-1.3); Partial Thromboplastin Time 22.5 Seconds (22.0-36.0); Prothrombin Time 10.7 Seconds (9.0-12.2)
[2025-07-14 16:26] LABS: Influenza A Ag Negative; Influenza B Ag Negative
[2025-07-14 16:35] LABS: Alanine Aminotransferase 21 U/L (10-49); Albumin, Serum 4.7 gm/dL (3.4-4.8); Albumin/Globulin Ratio 2.4 (1.2-2.2); Alkaline Phosphatase 367 U/L (46-116); Anion Gap 10 (7-16); Aspartate Amino Transferase 45 U/L (0-34); BUN/Creatinine Ratio 10 Ratio (12-20); Bilirubin,Total 0.9 mg/dL (0.3-1.2); Blood Urea Nitrogen 21 mg/dL (9-23); Calcium 10.1 mg/dL (8.3-10.6); Calcium (Corrected) 10.1 mg/dL (8.5-10.1); Carbon Dioxide 24.4 mMol/L (20.0-31.0); Chloride 105 mMol/L (98-107); Creatinine (Component) 2.1 mg/dL (0.6-1.3); Estimated Creatinine Clearance 38.3 mL/min (>60); Globulin 2.0 gm/dL (2.3-3.5); Glucose 124 mg/dL (74-106); Lipase 30 U/L (12-53); Magnesium 2.4 mg/dL (1.6-2.6); Osmolality,Calculated 281 (275-295); Phosphorous 2.9 mg/dL (2.4-5.1); Potassium 5.0 mMol/L (3.4-5.1); Procalcitonin 1.58 ng/ml (0.0-0.49); Sodium 139 mMol/L (136-145); Total Protein 6.7 gm/dL (5.7-8.2); eGFR 33 See Note
[2025-07-14 16:39] LABS: Troponin I 0.049 ng/mL (0.0-0.045)
[2025-07-14 16:40] LABS: LDH (Lactate Dehydrogenase) 963 U/L (120-246)
[2025-07-14 17:14] LABS: Hemoglobin 7.8 g/dL (13.5-16.0); White Blood Count 1064.0 Thou/mm3 (3.8-10.6)
[2025-07-14 17:15] LABS: Basophils # (Auto) 0.0 Thou/mm3 (0.0-0.2); Basophils % (Auto) 0 % (0-2.5); Eosinophils # (Auto) 0.0 Thou/mm3 (0.0-0.5); Eosinophils % (Auto) 0 % (0-10); Lymphocytes # (Auto) 70.0 Thou/mm3 (1.0-4.8); Lymphocytes % (Auto) 70 % (10-50); Monocytes # (Auto) 30.0 Thou/mm3 (0.0-0.8); Monocytes % (Auto) 30 % (0-12); Neutrophils # (Auto) 10.0 Thou/mm3 (1.8-7.7); Neutrophils % (Auto) 1 % (37-80)
[2025-07-14 17:16] LABS: Immature Granulocytes Auto 0.00 Thou/mm3 (0.00-0.00); Nucleated Red Blood Cell # 0.00 Thou/mm3 (0.00-0.00); Nucleated Red Blood Cell % 0 /100 WBC (0)
[2025-07-14 17:33] LABS: B-Type Natriuretic Peptide 37 pg/mL (0-100)
[2025-07-14 18:07] LABS: Path Review Blood Smear Sent to Pathologist
--- NOTE | 2025-07-14 21:03 | PD.NEPHHP ---
Documented by User: Ana M Kasper MD 07/16/25 15:44 Documentation for date of: 07/14/25 Meds Home Medications and Allergies Home Medications ?Medication ?Instructions ?Recorded ?Confirmed ?Type Lactobacills gasseri-Bifidobac 1 cap PO DAILY 03/16/18 07/15/25 History bifidum,longum 1.5 billion cell capsule ([employer] alprazolam 0.5 mg tablet,extended 0.5 mg PO QDAY 03/16/18 07/15/25 History release 24 hr amlodipine 5 mg-benazepril 10 mg 1 cap PO QDAY 03/16/18 07/15/25 History capsule losartan 100 1 tab PO QDAY 03/16/18 07/15/25 History mg-hydrochlorothiazide 25 mg tablet tamsulosin 0.4 mg capsule 0.4 mg PO DAILY 03/16/18 07/15/25 History Allergies Allergy/AdvReac Type Severity Reaction Status Date / Time No Known Allergies Allergy Unverified 07/15/25 12:44 Exam Vital Signs Temp Pulse Resp BP Pulse Ox O2 Del Method O2 Flow Rate 38.5 C H 99 15 124/63 94 L Oxy Mask 5 07/14/25 20:27 07/14/25 20:27 07/14/25 20:27 07/14/25 20:27 07/14/25 20:27 07/14/25 20:27 07/14/25 20:27 Results: Labs 07/16/25 05:03 07/16/25 05:03 Labs: Short CBC 07/14/25 Range/Units 15:30 WBC 1064.0 H* (3.8-10.6) Thou/mm3 Hgb 7.8 L (13.5-16.0) g/dL Hct 29.8 L (41.0-53.0) % Plt Count 136 L (140-440) Thou/mm3 BMP 07/14/25 15:30 Sodium 139 Potassium 5.0 Chloride 105 Carbon Dioxide 24.4 BUN 21 Creatinine 2.1 H Glucose 124 H Calcium 10.1 Cardiac Enzymes 07/14/25 Range/Units 15:30 Troponin I 0.049 H* (0.0-0.045) ng/mL Liver Function 07/14/25 Range/Units 15:30 Total Bilirubin 0.9 (0.3-1.2) mg/dL AST 45 H (0-34) U/L ALT 21 (10-49) U/L Alkaline Phosphatase 367 H (46-116) U/L Albumin 4.7 (3.4-4.8) gm/dL Urine 07/14/25 Range/Units 15:52 Urine Color Yellow (Lt Yel-Yel) Urine Clarity Clear (Clear/Hazy) Urine pH 6.0 (5.0-7.0) Ur Specific [place] 1.020 (1.001-1.035) Urine Protein 1+ A (Neg - Trace) Urine Glucose (UA) Negative (Negative) ABG Interpretation ABG results: 07/14/25 15:48 ABG pH 7.45 ABG pCO2 38 ABG pO2 48 L* ABG HCO3 26 ABG O2 Saturation 86 L ABG Base Excess 2 Assessment & Plan Additional Assessment & Plan Additional Plan: Florentin Kaufman 75M pmhx significant for dementia, HTN and CLL (discontinued treatment recently) who presents to [facility] ED 07/14 for altered mental status and fever, admitted for GINA and sepsis 2/2 unknown source vs febrile illness of CLL. #Sepsis 2/2 unknown origin #CLL, treatment discontinued #NSTEMI type II #GINA Patient presented with altered mental status and fever, Tmax on admission 103.3 ?F with tachycardia, WBC 1064 and desaturation to 93%. On admission ABG 7.45/38/48/26, troponin 0.049, LDH 963, procal 1.58. CXR shows mild HF no PNA, UA negative for infection. Ddx: sepsis (bactermia, colitis) vs febrile illness of CLL (increased cytokines and reactive processes) Plan: - Zosyn (07/14- - Supplemental O2 as needed - Tylenol and Morphine 1 mg q4h prn - LR 1L at 85 cc/hr - F/u BCx - DATA SECURITY COORDINATOR: recommend dysphagia 3 diet - PT ordered for evaluation #Goals of care #Dementia Patient's daughter at bedside, opting for [facility] with comfort measures. CODE STATUS is DNR Plan: - When patient is medically stable, will discharge to [facility] with comfort measures - Morphine 1 mg q4h prn #HTN Taking amlodipine benazepril and losartan HCTZ Plan: - Hold off on antihypertensives at this time due to septic state Hospital management: Lines: PIV Diet: dysphagia 3 Bowel: not indicated GI prophylaxis: not indicated DVT prophylaxis: heparin q12 Disposition: tele for IV abx and IV pain meds CODE STATUS: DNR Plan of care discussed with attending Dr. Kasper. Marilou Gómez DO PGY-1 Internal Medicine Patient seen and examined with resident physician Dr. Gómez. Note reviewed, agree with findings and recommendations. Admitted with fevers. So far cultures negative. Suspect related to underlying acute leukemia. Patient declining all treatments. He and his opted for comfort care. CODE STATUS changed to DNR/DNI. Will request rehab placement with comfort care. abrasive worker were alerted. Physical therapy ordered. Continue gentle IV fluids Quality Measures Quality Measures sepsis Possible source: pulmonary Blood cultures ordered: completed in ED Documented by User: Marilou Gómez DO 07/15/25 13:18 History of Present Illness History of Present Illness Chief complaint: AMS History of present illness: Florentin Kaufman 75M pmhx significant for dementia, HTN and CLL (discontinued treatment recently) who presents to [facility] ED 07/14 for altered mental status and fever. Per daughter at bedside, patient reports decline in mentation and overall health following discontinuation of treatment for CLL as dementia worsened on medication. For the past few days, patient was noted to have altered mental status with patient reporting he felt feverish. Positive review of systems are fevers, mild SOB and buttock pain due to chronic wound. Denies chest pain, abdominal pain or urinary symptoms. PMHx: as above FHx: Noncontributory Social Hx: remote smoker, denies alcohol or recreational illicit drug use Allergies: NKDA Medications: per med rec In ED, BP 118/74, HR 115, temp 102 T max 103.3, satting 93% on RA, significant labs include WBC of 1064, hemoglobin 7.8 MCV 101, platelets 136, ABG 7.45/38/48/26, Cr 2.1 GFR 33, troponin 0.049, LDH 963, procal 1.58. In ED, given 2.3L LR, Zofran, ceftriaxone x1, tylenol 1g, Zosyn, NS 1.125 L. UA indicates no infection chest x-ray shows mild heart failure no lobar pneumonia. EKG sinus tachycardia with left axis deviation. Patient was admitted for GINA and sepsis 2/2 unknown source vs febrile illness in leukemia. Review of Systems Review of Systems Systems Reviewed: All systems reviewed, normal except as documented Meds Home Medications and Allergies Home Medications ?Medication ?Instructions ?Recorded ?Confirmed ?Type Lactobacills gasseri-Bifidobac 1 cap PO DAILY 03/16/18 07/15/25 History bifidum,longum 1.5 billion cell capsule ([employer] alprazolam 0.5 mg tablet,extended 0.5 mg PO QDAY 03/16/18 07/15/25 History release 24 hr amlodipine 5 mg-benazepril 10 mg 1 cap PO QDAY 03/16/18 07/15/25 History capsule losartan 100 1 tab PO QDAY 03/16/18 07/15/25 History mg-hydrochlorothiazide 25 mg tablet tamsulosin 0.4 mg capsule 0.4 mg PO DAILY 03/16/18 07/15/25 History Allergies Allergy/AdvReac Type Severity Reaction Status Date / Time No Known Allergies Allergy Unverified 07/15/25 12:44 Exam Narrative Exam GENERAL: Alert, dementia, eyes shut during interview HEENT: mucous membranes dry, bilateral sclera anicteric CARDIOVASCULAR: regular rate and rhythm, S1/S2 present, no murmurs appreciated PULMONARY: clear to auscultation bilaterally, no rales/rhonchi/wheezes ABDOMINAL: soft, non-tender, non-distended, no rebound/guarding, bowel sounds present EXTREMITIES: no peripheral edema SKIN: warm and dry, intact, no rashes NEURO: CN II-XII grossly intact, no focal deficits, alert, following commands Results: Labs 07/16/25 05:03 07/16/25 05:03 Assessment & Plan Additional Assessment & Plan Additional Plan: Florentin Kaufman 75M pmhx significant for dementia, HTN and CLL (discontinued treatment recently) who presents to [facility] ED 07/14 for altered mental status and fever, admitted for GINA and sepsis 2/2 unknown source vs febrile illness of CLL. #Sepsis 2/2 unknown origin #CLL, treatment discontinued #NSTEMI type II #GINA Patient presented with altered mental status and fever, Tmax on admission 103.3 ?F with tachycardia, WBC 1064 and desaturation to 93%. On admission ABG 7.45/38/48/26, troponin 0.049, LDH 963, procal 1.58. CXR shows mild HF no PNA, UA negative for infection. Ddx: sepsis (bactermia, colitis) vs febrile illness of CLL (increased cytokines and reactive processes) Plan: - Zosyn (07/14- - Supplemental O2 as needed - Tylenol and Morphine 1 mg q4h prn - LR 1L at 85 cc/hr - F/u BCx - DATA SECURITY COORDINATOR: recommend dysphagia 3 diet - PT ordered for evaluation #Goals of care #Dementia Patient's daughter at bedside, opting for [facility] with comfort measures. CODE STATUS is DNR Plan: - When patient is medically stable, will discharge to [facility] with comfort measures - Morphine 1 mg q4h prn #HTN Taking amlodipine benazepril and losartan HCTZ Plan: - Hold off on antihypertensives at this time due to septic state Hospital management: Lines: PIV Diet: dysphagia 3 Bowel: not indicated GI prophylaxis: not indicated DVT prophylaxis: heparin q12 Disposition: tele for IV abx and IV pain meds CODE STATUS: DNR Plan of care discussed with attending Dr. Kasper. Marilou Gómez DO PGY-1 Internal Medicine Quality Measures Quality Measures sepsis Current suspected stage: sepsis Antibiotic ordered: Yes Advance care planning discussed with:: child
--- NOTE | 2025-07-14 21:33 | PC.NURSE ---
CALL ME TO DR MUSTAFA TO STATE THAT PTS ACETAMINOPHEN WAS NOT VERIFIED BY PHARMACY DUE TO NO PAIN SCALE OR FEVER SCALE. MADE AWARE OF THIS AND STATED SHE WOULD FIX IT.
[2025-07-14] MEDS: SODIUM CHLORIDE 0.9% 1000 ML 1,000 ML 999 ML IV (21:44)
[2025-07-14] MEDS: PIPER/TAZO 3.375 GM PREMIX 3.375 GM/50 ML BAG IV (21:44)
[2025-07-14] MEDS: SODIUM CHLORIDE 0.9% 1000 ML 1,000 ML 125 ML IV (21:45)
[2025-07-14] MEDS: ACETAMINOPHEN 325 MG TABLET 650 MG PO (22:31)
[2025-07-15] VITALS (8 sets, daily range): BP systolic 121–165; BP diastolic 60–78; PULSE 82–102; RESP 18–24; TEMP 36.3–38.1; O2SAT 94–97; BMI 28.9
[2025-07-15] MEDS: PIPER/TAZO 3.375 GM PREMIX 3.375 GM/50 ML BAG IV ×4 (05:20→23:19)
[2025-07-15] MEDS: SODIUM CHLORIDE 0.9% 1000 ML 1,000 ML 125 ML IV (05:23)
[2025-07-15 06:23] LABS: Basophils # (Auto) 0.3 Thou/mm3 (0.0-0.2); Basophils % (Auto) 0 % (0-2.5); Eosinophils # (Auto) 0.1 Thou/mm3 (0.0-0.5); Eosinophils % (Auto) 0 % (0-10); Hematocrit 29.0 % (41.0-53.0); Immature Granulocytes Auto 2.96 Thou/mm3 (0.00-0.00); Lymphocytes # (Auto) 662.3 Thou/mm3 (1.0-4.8); Lymphocytes % (Auto) 86 % (10-50); Mean Corpuscular HGB Conc 26.2 g/dl (31.0-37.0); Mean Corpuscular Hemoglobin 27.4 pg (25.0-35.0); Mean Corpuscular Volume 105 fL (80-100); Monocytes # (Auto) 98.9 Thou/mm3 (0.0-0.8); Monocytes % (Auto) 13 % (0-12); Neutrophils # (Auto) 6.1 Thou/mm3 (1.8-7.7); Neutrophils % (Auto) 1 % (37-80); Nucleated Red Blood Cell # 1.00 Thou/mm3 (0.00-0.00); Nucleated Red Blood Cell % 0 /100 WBC (0); RDW Standard Deviation 72.9 fL (35.1-43.9); Red Blood Count 2.77 Miln/mm3 (4.50-5.90)
[2025-07-15 06:26] LABS: Hemoglobin 7.6 g/dL (13.5-16.0); Platelet Count 74 Thou/mm3 (140-440)
[2025-07-15 07:02] LABS: Alanine Aminotransferase 16 U/L (10-49); Albumin, Serum 3.9 gm/dL (3.4-4.8); Albumin/Globulin Ratio 2.4 (1.2-2.2); Alkaline Phosphatase 269 U/L (46-116); Anion Gap 12 (7-16); Aspartate Amino Transferase 23 U/L (0-34); BUN/Creatinine Ratio 12 Ratio (12-20); Bilirubin,Total 0.8 mg/dL (0.3-1.2); Blood Urea Nitrogen 25 mg/dL (9-23); Calcium 9.1 mg/dL (8.3-10.6); Calcium (Corrected) 9.2 mg/dL (8.5-10.1); Carbon Dioxide 25.2 mMol/L (20.0-31.0); Chloride 106 mMol/L (98-107); Creatinine (Component) 2.1 mg/dL (0.6-1.3); Estimated Creatinine Clearance 37.8 mL/min (>60); Globulin 1.6 gm/dL (2.3-3.5); Glucose 108 mg/dL (74-106); Osmolality,Calculated 290 (275-295); Potassium 3.3 mMol/L (3.4-5.1); Sodium 143 mMol/L (136-145); Total Protein 5.5 gm/dL (5.7-8.2); eGFR 33 See Note
[2025-07-15 07:23] LABS: White Blood Count 770.7 Thou/mm3 (3.8-10.6)
[2025-07-15 07:24] LABS: Slide Review Platelets confirmed
[2025-07-15 07:35] LABS: Basophils (Manual) 1 % (0-2); Lymphocytes (Manual) 98 % (20-44); Neutrophils (Manual) 1 % (50-70)
[2025-07-15 07:36] LABS: Atypical Lymphs 3+
[2025-07-15 07:37] LABS: Smudge Cells 2+
[2025-07-15 07:39] LABS: Path Review Blood Smear Sent to Pathologist
[2025-07-15] MEDS: TAMSULOSIN HCL 0.4 MG CAPSULE PO (08:47)
--- NOTE | 2025-07-15 09:41 | PC.SS ---
Addendum entered by YENNY Winston 07/15/25 10:29: ASW Hina submitted SNF referral via [facility], pending PASSR and PT note. Original Note: This is 75-year-old, , male who presented to the ED altered mental status. Patient appeared confused. Assessment was completed with assistance of , [place]. Prior to admission, patient used to reside at home. He needs assistance with most ADLs, no DME at home. Patient has cancer, stopped treatments due to developing dementia. Patient's , [place] is his medical decision maker. Patient's PCP is Dr. Kasper. When medically clear, patient will need short-term rehabilitation. Patient needs [facility] facility, choices with pamphlets were provided to local SNFs. Alexandria's primary choice is [facility]. Discharge plan: Refer to [facility], will need transportation. Next of kin: Alexandria-.
--- NOTE | 2025-07-15 13:14 | ESPR_ITS ---
Documentation for date of: 07/15/25 Subjective Subjective Interval history: Florentin Kaufman 75M pmhx significant for dementia, HTN and CLL (discontinued treatment recently) who presents to [facility] ED 07/14 for altered mental status and fever. Per daughter at bedside, patient reports decline in mentation and overall health following discontinuation of treatment for CLL as dementia worsened on medication. For the past few days, patient was noted to have altered mental status with patient reporting he felt feverish. Positive review of systems are fevers, mild SOB and buttock pain due to chronic wound. Denies chest pain, abdominal pain or urinary symptoms. PMHx: as above FHx: Noncontributory Social Hx: remote smoker, denies alcohol or recreational illicit drug use Allergies: NKDA Medications: per med rec In ED, BP 118/74, HR 115, temp 102 T max 103.3, satting 93% on RA, significant labs include WBC of 1064, hemoglobin 7.8 MCV 101, platelets 136, ABG 7.45/38/48/26, Cr 2.1 GFR 33, troponin 0.049, LDH 963, procal 1.58. In ED, given 2.3L LR, Zofran, ceftriaxone x1, tylenol 1g, Zosyn, NS 1.125 L. UA indicates no infection chest x-ray shows mild heart failure no lobar pneumonia. EKG sinus tachycardia with left axis deviation. Patient was admitted for GINA and sepsis 2/2 unknown source vs febrile illness in leukemia. 07/15/25: Patient seen and examined at bedside. Patient reports pain at buttock with chronic wound present. Endorses burning of eyes with some blurry vision due to excess discharge and ordered warm towel wipes. Continue IV abx and pain medication prn if needed. Daughter at bedside opts for [place] with comfort measures. Exam Vital Signs Temp Pulse Resp BP Pulse Ox O2 Del Method O2 Flow Rate 98.2 F 93 22 H 148/78 H 95 Nasal Cannula 3 07/15/25 12:00 07/15/25 12:00 07/15/25 12:00 07/15/25 12:00 07/15/25 12:00 07/15/25 12:00 07/15/25 12:00 Narrative Exam GENERAL: Alert, dementia, eyes shut during interview HEENT: mucous membranes dry, bilateral sclera anicteric, mild discharge at bilateral eyes CARDIOVASCULAR: regular rate and rhythm, S1/S2 present, no murmurs appreciated PULMONARY: clear to auscultation bilaterally, no rales/rhonchi/wheezes ABDOMINAL: soft, non-tender, non-distended, no rebound/guarding, bowel sounds present EXTREMITIES: no peripheral edema SKIN: warm and dry, intact, no rashes NEURO: CN II-XII grossly intact, no focal deficits, alert, following commands Objective Labs 07/16/25 05:03 07/16/25 05:03 Labs: Laboratory Results - last 24 hr 07/14/25 07/14/25 07/14/25 15:30 15:48 15:50 WBC 1064.0 H* RBC 2.95 L Hgb 7.8 L Hct 29.8 L MCV 101 H MCH 26.4 MCHC 26.2 L RDW Std Deviation 70.6 H Plt Count 136 L Neut % (Auto) 1 L Lymph % (Auto) 70 H [place] % (Auto) 30 H Eos % (Auto) 0 Baso % (Auto) 0 Neut # (Auto) 10.0 H Lymph # (Auto) 70.0 H [place] # (Auto) 30.0 H Eos # (Auto) 0.0 Baso # (Auto) 0.0 Immature Gran # (Auto) 0.00 Absolute Nucleated RBC 0.00 Immature Gran % 0 Neutrophils % (Manual) Basophils % (Manual) Nucleated RBC % 0 Lymphocytes (Manual) Differential Comment Atypical Lymphocytes Smudge Cells Smear Path Review Sent to Pathologist PT 10.7 INR 1.0 APTT 22.5 Puncture Site Site Not Noted ABG pH 7.45 ABG pCO2 38 ABG pO2 48 L* ABG HCO3 26 ABG O2 Saturation 86 L ABG Base Excess 2 Oxygen Liter Flow 4 Sodium 139 Potassium 5.0 Chloride 105 Carbon Dioxide 24.4 Anion Gap 10 BUN 21 Creatinine 2.1 H Estim Creat Clear Calc 38.3 L eGFR 33 L BUN/Creatinine Ratio 10 L Glucose 124 H Calculated Osmolality 281 Lactic Acid Calcium 10.1 Corrected Calcium 10.1 Phosphorus 2.9 Magnesium 2.4 Total Bilirubin 0.9 AST 45 H ALT 21 Alkaline Phosphatase 367 H Lactate Dehydrogenase 963 H Troponin I 0.049 H* B-Natriuretic Peptide 37 Total Protein 6.7 Albumin 4.7 Globulin 2.0 L Albumin/Globulin Ratio 2.4 H Lipase 30 Procalcitonin 1.58 H Ur Collection Type Urine Color Urine Clarity Urine pH Ur Specific [place] Urine Protein Urine Glucose (UA) Urine Ketones Urine Blood Urine Nitrite Urine Bilirubin Urine Urobilinogen (Auto) Ur Leukocyte Esterase Urine RBC Urine WBC Ur Squamous Epith Cells Urine Bacteria Hyaline Casts Ur Culture Indicated? Influenza A (Rapid) Negative Influenza B (Rapid) Negative Mis Test Result 07/14/25 07/14/25 07/15/25 15:52 16:24 05:21 WBC 770.7 H* D RBC 2.77 L Hgb 7.6 L Hct 29.0 L MCV 105 H MCH 27.4 MCHC 26.2 L RDW Std Deviation 72.9 H Plt Count 74 L D Neut % (Auto) 1 L Lymph % (Auto) 86 H [place] % (Auto) 13 H Eos % (Auto) 0 Baso % (Auto) 0 Neut # (Auto) 6.1 Lymph # (Auto) 662.3 H [place] # (Auto) 98.9 H Eos # (Auto) 0.1 Baso # (Auto) 0.3 H Immature Gran # (Auto) 2.96 H Absolute Nucleated RBC 1.00 H Immature Gran % 0 Neutrophils % (Manual) 1 L Basophils % (Manual) 1 Nucleated RBC % 0 Lymphocytes (Manual) 98 H Differential Comment Atypical Lymphocytes 3+ Smudge Cells 2+ Smear Path Review Sent to Pathologist PT INR APTT Puncture Site ABG pH ABG pCO2 ABG pO2 ABG HCO3 ABG O2 Saturation ABG Base Excess Oxygen Liter Flow Sodium 143 Potassium 3.3 L D Chloride 106 Carbon Dioxide 25.2 Anion Gap 12 BUN 25 H Creatinine 2.1 H Estim Creat Clear Calc 37.8 L eGFR 33 L BUN/Creatinine Ratio 12 Glucose 108 H Calculated Osmolality 290 Lactic Acid Cancelled Calcium 9.1 Corrected Calcium 9.2 Phosphorus Magnesium Total Bilirubin 0.8 AST 23 ALT 16 Alkaline Phosphatase 269 H D Lactate Dehydrogenase Troponin I B-Natriuretic Peptide Total Protein 5.5 L Albumin 3.9 D Globulin 1.6 L Albumin/Globulin Ratio 2.4 H Lipase Procalcitonin Ur Collection Type Clean Catch Urine Color Yellow Urine Clarity Clear Urine pH 6.0 Ur Specific [place] 1.020 Urine Protein 1+ A Urine Glucose (UA) Negative Urine Ketones Negative Urine Blood 1+ A Urine Nitrite Negative Urine Bilirubin Negative Urine Urobilinogen (Auto) 2.0 Ur Leukocyte Esterase Negative Urine RBC 15 H Urine WBC 2 Ur Squamous Epith Cells < 1 Urine Bacteria None Hyaline Casts < 1 Ur Culture Indicated? Not Indicated Influenza A (Rapid) Influenza B (Rapid) Misc Test Result Platelets confirmed ABG Interpretation ABG results: 07/14/25 15:48 ABG pH 7.45 ABG pCO2 38 ABG pO2 48 L* ABG HCO3 26 ABG O2 Saturation 86 L ABG Base Excess 2 Quality Measures Quality Measures sepsis Current suspected stage: sepsis Possible source: pulmonary Blood cultures ordered: completed in ED Antibiotic ordered: Yes Advance care planning discussed with:: patient Assessment & Plan Assessment Current Active Medications: Generic Name Dose Route Start Last Admin Trade Name Freq PRN Reason Stop Dose Admin Acetaminophen 650 mg 07/15/25 12:53 Acetaminophen 325 Mg Tablet PO 08/13/25 20:59 Q6HR PRN fever > 101 Alprazolam 0.5 mg 07/15/25 09:00 07/15/25 08:54 Alprazolam 0.25 Mg Tablet PO 07/20/25 08:59 Not Given QDAY MATTIE Piperacillin/Tazobactam/Dextrose 3.375 gm in 50 mls @ 12.5 mls/hr 07/14/25 21:00 07/15/25 05:20 Zosyn IV 07/21/25 20:59 12.5 mls/hr Q6HR MATTIE Administration Protocol Sodium Chloride 1,000 mls @ 125 mls/hr 07/14/25 21:00 07/15/25 05:23 Ns IV 08/13/25 20:59 125 mls/hr .Q8H MATTIE Administration Morphine Sulfate 1 mg 07/15/25 12:46 Morphine Sulf Inj 4 Mg/Ml Vial IVP 07/20/25 12:45 Q4HR PRN PAIN Ondansetron HCl 4 mg 07/14/25 15:34 07/14/25 16:01 Ondansetron Inj 2 Mg/Ml Inj 2 Ml IVP 08/13/25 15:33 4 mg Q6HR PRN Administration NAUSEA OR VOMITING Tamsulosin HCl 0.4 mg 07/15/25 09:00 07/15/25 08:47 Tamsulosin Hcl 0.4 Mg Capsule PO 08/14/25 08:59 0.4 mg DAILY MATTIE Administration Plan Florentin Mandeep 75M pmhx significant for dementia, HTN and CLL (discontinued treatment recently) who presents to [facility] ED 07/14 for altered mental status and fever, admitted for GINA and sepsis 2/2 unknown source vs febrile illness of CLL. #Sepsis 2/2 unknown origin #CLL, treatment discontinued #NSTEMI type II #GINA Patient presented with altered mental status and fever, Tmax on admission 103.3 ?F with tachycardia, WBC 1064 and desaturation to 93%. On admission ABG 7.45/38/48/26, troponin 0.049, LDH 963, Cr 2.1 GFR 33 (BL Cr 1.6-1.8), procal 1.58. CXR shows mild HF no PNA, UA negative for infection. Ddx: sepsis (bactermia, colitis) vs febrile illness of CLL (increased cytokines and reactive processes) vs blast crisis Plan: - Zosyn (07/14- - Supplemental O2 as needed - Tylenol and Morphine 1 mg q4h prn - F/u BCx - ELECTRIC ORGAN ASSEMBLER AND CHECKER: recommend dysphagia 3 diet - PT ordered for evaluation #Goals of care #Dementia Patient's daughter at bedside, opting for [place] with comfort measures. CODE STATUS is DNR Plan: - When patient is medically stable, will discharge to [place] with comfort measures - Morphine 1 mg q4h prn #HTN Taking amlodipine benazepril and losartan HCTZ Plan: - Hold off on antihypertensives at this time due to septic state and BP is fluctuant Hospital management: Lines: PIV Diet: dysphagia 3 Bowel: not indicated GI prophylaxis: not indicated DVT prophylaxis: Disposition: tele for IV abx and IV pain meds CODE STATUS: DNR Plan of care discussed with attending Dr. Kasper. Marilou Gómez DO PGY-1 Internal Medicine Attending Provider Attestation/Addendum Patient seen and examined with resident physician Dr. Turner. Note reviewed, agree with findings and recommendations. Admitted with fevers. So far cultures negative. Suspect related to underlying acute leukemia. Patient declining all treatments. DC IV fluids, IV antibiotics he and his opted for comfort care. CODE STATUS changed to DNR/DNI. Will request rehab placement with comfort care. dye house worker were alerted. Physical therapy ordered. Possible discharge tomorrow to rehab with comfort care.
[2025-07-15] MEDS: POTASSIUM CHLORIDE 10% 20 MEQ/15 ML UDC PO (13:16)
--- NOTE | 2025-07-15 13:24 | PC.NURSE ---
Dr. Kasper contacted to clarify if pt should be on NS or LR. Per D/C NS and start LR.
[2025-07-15] MEDS: HEPARIN SOD INJ 5000 UNIT/ML VIAL SC ×2 (13:36→20:59)
[2025-07-15] MEDS: RINGERS LACTATED 1000 ML 1,000 ML 85 ML IV (13:36)
[2025-07-15] MEDS: ALBUTEROL/IPRATROPIUM (Duoneb) RT SOL 3 ML NEBU INH (20:11)
[2025-07-16] VITALS (9 sets, daily range): BP systolic 129–157; BP diastolic 73–91; PULSE 88–108; RESP 17–23; TEMP 36.1–36.4; O2SAT 92–98; BMI 29.8
[2025-07-16] MEDS: PIPER/TAZO 3.375 GM PREMIX 3.375 GM/50 ML BAG IV (05:12)
[2025-07-16 05:54] LABS: Basophils # (Auto) 0.5 Thou/mm3 (0.0-0.2); Basophils % (Auto) 0 % (0-2.5); Eosinophils # (Auto) 0.1 Thou/mm3 (0.0-0.5); Eosinophils % (Auto) 0 % (0-10); Hematocrit 27.5 % (41.0-53.0); Immature Granulocytes Auto 3.15 Thou/mm3 (0.00-0.00); Lymphocytes # (Auto) 684.6 Thou/mm3 (1.0-4.8); Lymphocytes % (Auto) 83 % (10-50); Mean Corpuscular HGB Conc 28.0 g/dl (31.0-37.0); Mean Corpuscular Hemoglobin 29.1 pg (25.0-35.0); Mean Corpuscular Volume 104 fL (80-100); Monocytes # (Auto) 128.3 Thou/mm3 (0.0-0.8); Monocytes % (Auto) 16 % (0-12); Neutrophils # (Auto) 7.6 Thou/mm3 (1.8-7.7); Neutrophils % (Auto) 1 % (37-80); Nucleated Red Blood Cell # 0.71 Thou/mm3 (0.00-0.00); Nucleated Red Blood Cell % 0 /100 WBC (0); RDW Standard Deviation 74.2 fL (35.1-43.9); Red Blood Count 2.65 Miln/mm3 (4.50-5.90)
[2025-07-16 05:55] LABS: Hemoglobin 7.7 g/dL (13.5-16.0); Platelet Count 66 Thou/mm3 (140-440); White Blood Count 824.4 Thou/mm3 (3.8-10.6)
[2025-07-16 06:22] LABS: Alanine Aminotransferase 15 U/L (10-49); Albumin, Serum 3.7 gm/dL (3.4-4.8); Albumin/Globulin Ratio 2.2 (1.2-2.2); Alkaline Phosphatase 243 U/L (46-116); Anion Gap 13 (7-16); Aspartate Amino Transferase 28 U/L (0-34); BUN/Creatinine Ratio 14 Ratio (12-20); Bilirubin,Total 0.8 mg/dL (0.3-1.2); Blood Urea Nitrogen 28 mg/dL (9-23); Calcium 9.1 mg/dL (8.3-10.6); Calcium (Corrected) 9.3 mg/dL (8.5-10.1); Carbon Dioxide 24.9 mMol/L (20.0-31.0); Chloride 104 mMol/L (98-107); Creatinine (Component) 2.0 mg/dL (0.6-1.3); Estimated Creatinine Clearance 40.3 mL/min (>60); Globulin 1.7 gm/dL (2.3-3.5); Glucose 89 mg/dL (74-106); Osmolality,Calculated 287 (275-295); Potassium 3.3 mMol/L (3.4-5.1); Sodium 142 mMol/L (136-145); Total Protein 5.4 gm/dL (5.7-8.2); eGFR 35 See Note
[2025-07-16 08:04] LABS: Slide Review Platelets confirmed
[2025-07-16] MEDS: TAMSULOSIN HCL 0.4 MG CAPSULE PO (09:13)
[2025-07-16] MEDS: HEPARIN SOD INJ 5000 UNIT/ML VIAL SC ×2 (09:13→20:28)
[2025-07-16] MEDS: POTASSIUM CHLORIDE 10% 20 MEQ/15 ML UDC 40 MEQ PO (10:42)
--- NOTE | 2025-07-16 11:44 | PD.RESPRO ---
Documentation for date of: 07/16/25 Subjective Subjective Interval history: Florentin Kaufman 75M pmhx significant for dementia, HTN and CLL (discontinued treatment recently) who presents to [facility] ED 07/14 for altered mental status and fever. Per daughter at bedside, patient reports decline in mentation and overall health following discontinuation of treatment for CLL as dementia worsened on medication. For the past few days, patient was noted to have altered mental status with patient reporting he felt feverish. Positive review of systems are fevers, mild SOB and buttock pain due to chronic wound. Denies chest pain, abdominal pain or urinary symptoms. PMHx: as above FHx: Noncontributory Social Hx: remote smoker, denies alcohol or recreational illicit drug use Allergies: NKDA Medications: per med rec In ED, BP 118/74, HR 115, temp 102 T max 103.3, satting 93% on RA, significant labs include WBC of 1064, hemoglobin 7.8 MCV 101, platelets 136, ABG 7.45/38/48/26, Cr 2.1 GFR 33, troponin 0.049, LDH 963, procal 1.58. In ED, given 2.3L LR, Zofran, ceftriaxone x1, tylenol 1g, Zosyn, NS 1.125 L. UA indicates no infection chest x-ray shows mild heart failure no lobar pneumonia. EKG sinus tachycardia with left axis deviation. Patient was admitted for GINA and sepsis 2/2 unknown source vs febrile illness in leukemia. 07/15/25: Patient seen and examined at bedside. Patient reports pain at buttock with chronic wound present. Endorses burning of eyes with some blurry vision due to excess discharge and ordered warm towel wipes. Continue IV abx and pain medication prn if needed. Daughter at bedside opts for [place] with comfort measures. 07/16/2025: Patient seen and examined in telemetry today with , [place] at bedside. Afebrile >24 hours. This morning he was sitting up and much more alert than yesterday. Endorsed generalized weakness, but improved. Also endorsed a nonproductive cough and pleuritic chest pain. On 07/15/2025 patient agreed with DC plan to [facility] with comfort measures. Currently pending physical therapy evaluation prior to discharge. Will schedule DuoNebs every 6 hourly, ordered chest physiotherapy and scheduled Colace twice daily for constipation. Exam Vital Signs Temp Pulse Resp BP Pulse Ox O2 Del Method O2 Flow Rate 97.0 F 97 20 147/91 H 97 Nasal Cannula 3 07/16/25 08:00 07/16/25 09:24 07/16/25 09:24 07/16/25 08:00 07/16/25 09:24 07/16/25 08:00 07/16/25 09:24 Narrative Exam GENERAL: Alert and oriented x 3 [person, place and time]. Elderly male laying in no acute distress HEENT: mucous membranes moist, bilateral sclera anicteric, mild serous discharge at bilateral eyes CARDIOVASCULAR: regular rate and rhythm, S1/S2 present, no murmurs appreciated PULMONARY: clear to auscultation bilaterally, no rales/rhonchi/wheezes. Upper respiratory transmitted sounds ABDOMINAL: soft, non-tender, non-distended, no rebound/guarding, bowel sounds present EXTREMITIES: no peripheral edema SKIN: warm and dry, intact, no rashes NEURO: CN II-XII grossly intact, no focal deficits, alert, following commands Objective Labs 07/16/25 05:03 07/16/25 05:03 Labs: Laboratory Results - last 24 hr 07/16/25 05:03 WBC 824.4 H* D RBC 2.65 L Hgb 7.7 L Hct 27.5 L MCV 104 H MCH 29.1 MCHC 28.0 L RDW Std Deviation 74.2 H Plt Count 66 L Neut % (Auto) 1 L Lymph % (Auto) 83 H [place] % (Auto) 16 H Eos % (Auto) 0 Baso % (Auto) 0 Neut # (Auto) 7.6 Lymph # (Auto) 684.6 H [place] # (Auto) 128.3 H Eos # (Auto) 0.1 Baso # (Auto) 0.5 H Immature Gran # (Auto) 3.15 H Absolute Nucleated RBC 0.71 H Immature Gran % 0 Nucleated RBC % 0 Smear Path Review Sodium 142 Potassium 3.3 L Chloride 104 Carbon Dioxide 24.9 Anion Gap 13 BUN 28 H Creatinine 2.0 H Estim Creat Clear Calc 40.3 L eGFR 35 L BUN/Creatinine Ratio 14 Glucose 89 Calculated Osmolality 287 Calcium 9.1 Corrected Calcium 9.3 Total Bilirubin 0.8 AST 28 ALT 15 Alkaline Phosphatase 243 H D Total Protein 5.4 L Albumin 3.7 Globulin 1.7 L Albumin/Globulin Ratio 2.2 Misc Test Result Platelets confirmed ABG Interpretation ABG results: 07/14/25 15:48 ABG pH 7.45 ABG pCO2 38 ABG pO2 48 L* ABG HCO3 26 ABG O2 Saturation 86 L ABG Base Excess 2 Quality Measures Quality Measures sepsis Current suspected stage: ruled out Possible source: pulmonary Blood cultures ordered: completed in ED Antibiotic ordered: Yes Advance care planning discussed with:: patient Assessment & Plan Assessment Current Active Medications: Generic Name Dose Route Start Last Admin Trade Name Freq PRN Reason Stop Dose Admin Acetaminophen 650 mg 07/15/25 12:53 Acetaminophen 325 Mg Tablet PO 08/13/25 20:59 Q6HR PRN fever > 101 Albuterol/Ipratropium 3 ml 07/16/25 13:00 Albuterol/Ipratropium (Duoneb) Rt Brenda 3 Ml Nebu INH 08/15/25 12:59 Q6HRRT MATTIE Alprazolam 0.5 mg 07/16/25 11:25 Alprazolam 0.25 Mg Tablet PO 07/20/25 08:59 QDAY PRN anxiety or insomnia Docusate Sodium 100 mg 07/16/25 11:30 Docusate Sod Liqd 100 Mg/10 Ml Udc PO 08/15/25 11:29 BID MATTIE Protocol Fluticasone/Umeclidinium/Vilanterol 1 puff 07/15/25 20:00 07/15/25 20:27 Fluticasone/Umeclidin/Vilanterol 100-62.5-25 Mcg Inhaler INH 08/14/25 19:59 Not Given QDAY MATTIE Guaifenesin 100 mg 07/16/25 12:00 Guaifenesin Syrup 200 Mg/10 Ml Udc PO 08/15/25 11:59 QID MATTIE Protocol Heparin Sodium (Porcine) 5,000 unit 07/15/25 13:30 07/16/25 09:13 Heparin Sod Inj 5000 Unit/Ml Vial SC 07/29/25 13:29 5,000 unit Q12HR MATTIE Administration Morphine Sulfate 1 mg 07/15/25 12:46 Morphine Sulf Inj 4 Mg/Ml Vial IVP 07/20/25 12:45 Q4HR PRN PAIN Ondansetron HCl 4 mg 07/14/25 15:34 07/14/25 16:01 Ondansetron Inj 2 Mg/Ml Inj 2 Ml IVP 08/13/25 15:33 4 mg Q6HR PRN Administration NAUSEA OR VOMITING Tamsulosin HCl 0.4 mg 07/15/25 09:00 07/16/25 09:13 Tamsulosin Hcl 0.4 Mg Capsule PO 08/14/25 08:59 0.4 mg DAILY MATTIE Administration Plan Florentin Kaufman 75M pmhx significant for dementia, HTN and CLL (discontinued treatment recently) who presents to [facility] ED 07/14 for altered mental status and fever, admitted for GINA and sepsis 2/2 unknown source vs febrile illness of CLL. #Sepsis 2/2 unknown origin?ruled out #Neoplastic fever #CLL, treatment discontinued #NSTEMI type I versus type II?resolved #GINA?improving Patient presented with altered mental status and fever, Tmax on admission 103.3 ?F with tachycardia, WBC 1064 and desaturation to 93%. On admission ABG 7.45/38/48/26, troponin 0.049, LDH 963, Cr 2.1 GFR 33 (BL Cr 1.6-1.8), procal 1.58. CXR shows mild HF no PNA, UA negative for infection. Patient came in and found to have 2 or more SIRS criteria and was evaluated for sepsis. However, based upon further work-up, sepsis was ruled out. Blood cultures showed no bacterial growth x 24 hours?preliminary Ddx: sepsis (bactermia, colitis) vs febrile illness of CLL (increased cytokines and reactive processes) vs blast crisis Plan: - Discontinued Zosyn [07/14-07/16] - Supplemental O2 as needed - Tylenol and Morphine 1 mg q4h prn - AUTOMOTIVE AIRCONDITIONING MECHANIC: recommend dysphagia 3 diet - PT ordered for evaluation, currently still pending. #Hypokalemia K3.3 Plan: ? KCl 40 mEq liquid p.o. x 1 given #Goals of care #Dementia Patient's daughter at bedside, opting for [place] with comfort measures. CODE STATUS is DNR Plan: - Pending PT eval patient will be discharged to [facility] with comfort measures on 07/17/2025: - Morphine 1 mg q4h prn #HTN Taking amlodipine benazepril and losartan HCTZ Plan: - Hold off on antihypertensives at this time due to septic state and BP is fluctuant Hospital management: Lines: PIV Diet: dysphagia 3 Bowel: not indicated GI prophylaxis: not indicated DVT prophylaxis: Disposition: Pending PT evaluation. Plan to DC to [facility] on 07/17/2025. CODE STATUS: DNR Plan of care discussed with Attending Dr. Majo Turner MD PGY 2 Disclaimer: This note was dictated by speech recognition. Minor errors in recycling collections driver may be present due to voice recognition software. Attending Provider Attestation/Addendum Patient seen and examined with resident physician Dr. Turner. Note reviewed, agree with findings and recommendations. Admitted with fevers, rule out sepsis. So far all cultures negative. Will DC IV fluids, IV antibiotics. Will arrange physical therapy. Possible discharge tomorrow to rehab with comfort care.
[2025-07-16] MEDS: DOCUSATE SOD LIQD 100 MG/10 ML UDC PO ×2 (12:37→20:28)
[2025-07-16] MEDS: guaiFENesin SYRUP 200 MG/10 ML UDC 100 MG PO ×3 (12:37→20:28)
[2025-07-16] MEDS: ALBUTEROL/IPRATROPIUM (Duoneb) RT SOL 3 ML NEBU INH ×2 (12:49→18:46)
[2025-07-17] VITALS (11 sets, daily range): BP systolic 150–170; BP diastolic 86–99; PULSE 95–119; RESP 18–26; TEMP 36.5–36.7; O2SAT 93–100; BMI 29.8
[2025-07-17] MEDS: ALBUTEROL/IPRATROPIUM (Duoneb) RT SOL 3 ML NEBU INH ×4 (00:14→18:39)
[2025-07-17] MEDS: guaiFENesin SYRUP 200 MG/10 ML UDC 100 MG PO ×4 (05:16→20:07)
[2025-07-17 05:42] LABS: Basophils # (Auto) 0.2 Thou/mm3 (0.0-0.2); Basophils % (Auto) 0 % (0-2.5); Eosinophils # (Auto) 0.0 Thou/mm3 (0.0-0.5); Eosinophils % (Auto) 0 % (0-10); Hematocrit 28.3 % (41.0-53.0); Immature Granulocytes Auto 3.41 Thou/mm3 (0.00-0.00); Lymphocytes # (Auto) 659.4 Thou/mm3 (1.0-4.8); Lymphocytes % (Auto) 83 % (10-50); Mean Corpuscular HGB Conc 26.9 g/dl (31.0-37.0); Mean Corpuscular Hemoglobin 27.9 pg (25.0-35.0); Mean Corpuscular Volume 104 fL (80-100); Monocytes # (Auto) 123.5 Thou/mm3 (0.0-0.8); Monocytes % (Auto) 16 % (0-12); Neutrophils # (Auto) 8.8 Thou/mm3 (1.8-7.7); Neutrophils % (Auto) 1 % (37-80); Nucleated Red Blood Cell # 1.12 Thou/mm3 (0.00-0.00); Nucleated Red Blood Cell % 0 /100 WBC (0); Platelet Count 82 Thou/mm3 (140-440); RDW Standard Deviation 74.1 fL (35.1-43.9); Red Blood Count 2.72 Miln/mm3 (4.50-5.90)
[2025-07-17 06:02] LABS: Hemoglobin 7.6 g/dL (13.5-16.0); White Blood Count 795.4 Thou/mm3 (3.8-10.6)
[2025-07-17 06:36] LABS: Alanine Aminotransferase 14 U/L (10-49); Albumin, Serum 3.8 gm/dL (3.4-4.8); Albumin/Globulin Ratio 2.0 (1.2-2.2); Alkaline Phosphatase 297 U/L (46-116); Anion Gap 11 (7-16); Aspartate Amino Transferase 28 U/L (0-34); BUN/Creatinine Ratio 13 Ratio (12-20); Bilirubin,Total 0.6 mg/dL (0.3-1.2); Blood Urea Nitrogen 24 mg/dL (9-23); Calcium 9.5 mg/dL (8.3-10.6); Calcium (Corrected) 9.7 mg/dL (8.5-10.1); Carbon Dioxide 23.7 mMol/L (20.0-31.0); Chloride 106 mMol/L (98-107); Creatinine (Component) 1.8 mg/dL (0.6-1.3); Estimated Creatinine Clearance 44.7 mL/min (>60); Globulin 1.9 gm/dL (2.3-3.5); Glucose 94 mg/dL (74-106); Osmolality,Calculated 285 (275-295); Potassium 4.6 mMol/L (3.4-5.1); Sodium 141 mMol/L (136-145); Total Protein 5.7 gm/dL (5.7-8.2); eGFR 39 See Note
[2025-07-17 08:04] LABS: Path Review Blood Smear Sent to Pathologist
[2025-07-17] MEDS: HEPARIN SOD INJ 5000 UNIT/ML VIAL SC ×2 (09:04→20:08)
[2025-07-17] MEDS: DOCUSATE SOD LIQD 100 MG/10 ML UDC PO ×3 (09:04→20:08)
[2025-07-17] MEDS: TAMSULOSIN HCL 0.4 MG CAPSULE PO (09:04)
--- NOTE | 2025-07-17 09:06 | PC.PT ---
PT spoke with YENNY Williamson in regards to patient DC plan to SNF w/ comfort care measures. YENNY is unsure at this time but progress notes indicate patient will transition to comfort care measures. COMPUTER SPECIALIST informed PT that patient does not require auth to DC to SNF. Will cancel PT eval at this time due to patient is to leave with comfort measures.
--- NOTE | 2025-07-17 09:33 | PC.SS ---
PASSR completed. Due to meeting categorical condition does not meet Level II criteria. On line closure is pending.
--- NOTE | 2025-07-17 09:36 | PC.SS ---
ETHNOARCHAEOLOGIST confirmed with patient's spouse plan to transition patient to [place] with comfort care measures.
--- NOTE | 2025-07-17 09:46 | PD.NEPHDC ---
Planned Discharge Date 07/18/2025 DS: Providers Provider Date of admission: 07/14/25 20:59 Primary care physician: Ana M Kasper MD Admitting Provider: Ana M Kasper MD Attending Provider on Admission: Ana M Kasper MD Consults: 07/15/25 10:02 Referral Speech Therapy Routine Comment: 07/16/25 10:12 Referral Discharge Planning Routine Comment: Instructions: D/c to [facility] with comfort. pending PT Attending Provider on DC: Ana M Kasper MD Discharging Provider: Ana M Kasper MD Discharge Diagnosis Discharge Diagnosis (1) Pneumonia: Status: Acute Assessment & Plan: Florentin Kaufman 75M pmhx significant for dementia, HTN and CLL (discontinued treatment recently) who presents to [facility] ED 07/14 for altered mental status and fever, admitted for GINA and sepsis 2/2 unknown source vs febrile illness of CLL. #Sepsis 2/2 unknown origin?ruled out #Neoplastic fever #CLL, treatment discontinued #NSTEMI type I versus type II?resolved #GINA?improving Patient presented with altered mental status and fever, Tmax on admission 103.3 ?F with tachycardia, WBC 1064 and desaturation to 93%. On admission ABG 7.45/38/48/26, troponin 0.049, LDH 963, Cr 2.1 GFR 33 (BL Cr 1.6-1.8), procal 1.58. CXR shows mild HF no PNA, UA negative for infection. Patient came in and found to have 2 or more SIRS criteria and was evaluated for sepsis. However, based upon further work-up, sepsis was ruled out. Blood cultures showed no bacterial growth x 24 hours?preliminary Ddx: sepsis (bactermia, colitis) vs febrile illness of CLL (increased cytokines and reactive processes) vs blast crisis Plan: - Discontinued Zosyn [07/14-07/16] - Supplemental O2 as needed - Tylenol and Morphine 1 mg q4h prn - CONTRACTS DIRECTOR: recommend dysphagia 3 diet - PT ordered for evaluation, . #Hypokalemia K3.3 Plan: ? KCl 40 mEq liquid p.o. x 1 given #Goals of care #Dementia Patient's daughter at bedside, opting for [facility] with comfort measures. CODE STATUS is DNR Plan: - Pending PT eval patient will be discharged to [facility] with comfort measures on 07/18/2025: - Morphine 1 mg q4h prn #HTN Taking amlodipine benazepril and losartan HCTZ Plan: - Hold off on antihypertensives at this time due to septic state and BP is fluctuant Hospital management: Lines: PIV Diet: dysphagia 3 Bowel: not indicated GI prophylaxis: not indicated DVT prophylaxis: Disposition: Pending PT evaluation. Plan to DC to [facility] on 07/17/2025. CODE STATUS: DNR Problem List Completed Was Problem List Reviewed/Reconciled?: Yes Hospital Course Hospital Course Hospital course: Florentin Kaufman 75M pmhx significant for dementia, HTN and CLL (discontinued treatment recently) who presents to [facility] ED 07/14 for altered mental status and fever. Per daughter at bedside, patient reports decline in mentation and overall health following discontinuation of treatment for CLL as dementia worsened on medication. For the past few days, patient was noted to have altered mental status with patient reporting he felt feverish. Positive review of systems are fevers, mild SOB and buttock pain due to chronic wound. Denies chest pain, abdominal pain or urinary symptoms. PMHx: as above FHx: Noncontributory Social Hx: remote smoker, denies alcohol or recreational illicit drug use Allergies: NKDA Medications: per med rec In ED, BP 118/74, HR 115, temp 102 T max 103.3, satting 93% on RA, significant labs include WBC of 1064, hemoglobin 7.8 MCV 101, platelets 136, ABG 7.45/38/48/26, Cr 2.1 GFR 33, troponin 0.049, LDH 963, procal 1.58. In ED, given 2.3L LR, Zofran, ceftriaxone x1, tylenol 1g, Zosyn, NS 1.125 L. UA indicates no infection chest x-ray shows mild heart failure no lobar pneumonia. EKG sinus tachycardia with left axis deviation. Patient was admitted for GINA and sepsis 2/2 unknown source vs febrile illness in leukemia. Status at Discharge Cognitive/behavioral status at discharge: mild dementia Functional status at discharge: wheelchair bound Overall status at discharge: patient is not back to baseline Time Spent with Patient Time attestation: Total time spent providing and/or coordinating discharge services: 20 minutes Exam Vital Signs Temp Pulse Resp BP Pulse Ox O2 Del Method O2 Flow Rate 36.7 C 95 20 164/94 H 100 Nasal Cannula 4 07/17/25 08:00 07/17/25 08:00 07/17/25 08:00 07/17/25 08:00 07/17/25 08:00 07/17/25 08:00 07/17/25 08:00 Narrative Exam GENERAL: Alert and oriented Elderly male laying in no acute distress HEENT: mucous membranes moist, bilateral sclera anicteric, mild serous discharge at bilateral eyes CARDIOVASCULAR: regular rate and rhythm, S1/S2 present, no murmurs appreciated PULMONARY: clear to auscultation bilaterally, no rales/rhonchi/wheezes. Upper respiratory transmitted sounds ABDOMINAL: soft, non-tender, non-distended, no rebound/guarding, bowel sounds present EXTREMITIES: no peripheral edema SKIN: warm and dry, intact, no rashes NEURO: , no focal deficits, alert, following commands Discharge Plan Plan Patient Disposition: Xfer Skilled Nsg Fac (SNF) Disposition Comment: comfort care Prescriptions/Referrals Prescriptions/Med Rec: Continued tamsulosin 0.4 mg Capsule,Extended Release 24hr 0.4 mg PO DAILY amlodipine-benazepril 5-10 mg Capsule 1 cap PO QDAY alprazolam 0.5 mg Tablet Extended Release 24 Hr 0.5 mg PO QDAY [email or web address] 1.5 billion cell Capsule 1 cap PO DAILY Discontinued losartan-hydrochlorothiazide 100-25 mg Tablet 1 tab PO QDAY Referrals: Ana M Kasper MD [Primary Care Provider, Nephrology] Patient/Caregiver Discharge Instructions Discharge Activity: activity as tolerated Other Discharge Activity Instructions:: Ordered to keep chronic alaniz for hospice care per Dr. Kasper Print Language: Sinhala Activity Restrictions/Additional Instructions: COMFORT CARE DNR/DNI Stand Alone Forms: Carine Award Info., Patient Portal Info Letter Discharge Order Discharge Orders: Discharge (Routine); Ordered 07/18/25 Ordered By: Ana M Kasper
--- NOTE | 2025-07-17 10:37 | PC.NURSE ---
Dr. Kasper made aware patient WBC 795.4
--- NOTE | 2025-07-17 11:53 | PC.SS ---
ULTRASONIC WELDING MACHINE OPERATOR conducted follow up with [facility] staff, Saida; on line closure to be completed today.
--- NOTE | 2025-07-17 13:42 | PC.SS ---
P[facility]SR remains open online. Closure of [facility] has not been conducted. DISASTER RECOVERY ANALYST contacted [facility] staff, ; no response. Voicemail left requesting on line closure of [facility]. Patient to d/c to [place] pending medical clearance.
[2025-07-17] MEDS: LACTULOSE SYRUP 20 GM/30 ML UDC 15 GM PO ×2 (15:33→20:08)
--- NOTE | 2025-07-17 19:41 | ESPR_ITS ---
Documentation for date of: 07/17/25 Subjective Subjective Interval history: Florentin Kaufman 75M pmhx significant for dementia, HTN and CLL (discontinued treatment recently) who presents to [facility] ED 07/14 for altered mental status and fever. Per daughter at bedside, patient reports decline in mentation and overall health following discontinuation of treatment for CLL as dementia worsened on medication. For the past few days, patient was noted to have altered mental status with patient reporting he felt feverish. Positive review of systems are fevers, mild SOB and buttock pain due to chronic wound. Denies chest pain, abdominal pain or urinary symptoms. PMHx: as above FHx: Noncontributory Social Hx: remote smoker, denies alcohol or recreational illicit drug use Allergies: NKDA Medications: per med rec In ED, BP 118/74, HR 115, temp 102 T max 103.3, satting 93% on RA, significant labs include WBC of 1064, hemoglobin 7.8 MCV 101, platelets 136, ABG 7.45/38/48/26, Cr 2.1 GFR 33, troponin 0.049, LDH 963, procal 1.58. In ED, given 2.3L LR, Zofran, ceftriaxone x1, tylenol 1g, Zosyn, NS 1.125 L. UA indicates no infection chest x-ray shows mild heart failure no lobar pneumonia. EKG sinus tachycardia with left axis deviation. Patient was admitted for GINA and sepsis 2/2 unknown source vs febrile illness in leukemia. 07/17/2025 patient currently seen in telemetry. He seems to be very sleepy today. Constipation noted. Lactulose, soap water enema ordered prior to discharge to rehab with comfort care. Review of Systems Review of Systems Narrative Review of Systems: Patient sleepy but arousable. Denies any chest pain or shortness of breath. Exam Vital Signs Temp Pulse Resp BP Pulse Ox O2 Del Method O2 Flow Rate 36.7 C 103 H 23 H 162/95 H 97 Nasal Cannula 2 07/17/25 16:00 07/17/25 18:41 07/17/25 18:41 07/17/25 16:00 07/17/25 18:41 07/17/25 16:00 07/17/25 18:41 Narrative Exam GENERAL: Patient resting comfortably-sleepy HEENT: mucous membranes moist, bilateral sclera anicteric, mild serous discharge at bilateral eyes CARDIOVASCULAR: regular rate and rhythm, S1/S2 present, no murmurs appreciated PULMONARY: clear to auscultation bilaterally, no rales/rhonchi/wheezes. Upper respiratory transmitted sounds ABDOMINAL: soft, non-tender, non-distended, no rebound/guarding, bowel sounds present EXTREMITIES: no peripheral edema SKIN: warm and dry, intact, no rashes NEURO: Sleepy although arousable Objective Labs 07/17/25 05:22 07/17/25 05:22 Labs: Laboratory Results - last 24 hr 07/17/25 05:22 WBC 795.4 H* D RBC 2.72 L Hgb 7.6 L Hct 28.3 L MCV 104 H MCH 27.9 MCHC 26.9 L RDW Std Deviation 74.1 H Plt Count 82 L D Neut % (Auto) 1 L Lymph % (Auto) 83 H [place] % (Auto) 16 H Eos % (Auto) 0 Baso % (Auto) 0 Neut # (Auto) 8.8 H Lymph # (Auto) 659.4 H [place] # (Auto) 123.5 H Eos # (Auto) 0.0 Baso # (Auto) 0.2 Immature Gran # (Auto) 3.41 H Absolute Nucleated RBC 1.12 H Immature Gran % 0 Nucleated RBC % 0 Smear Path Review Sent to Pathologist Sodium 141 Potassium 4.6 D Chloride 106 Carbon Dioxide 23.7 Anion Gap 11 BUN 24 H Creatinine 1.8 H Estim Creat Clear Calc 44.7 L eGFR 39 L BUN/Creatinine Ratio 13 Glucose 94 Calculated Osmolality 285 Calcium 9.5 Corrected Calcium 9.7 Total Bilirubin 0.6 AST 28 ALT 14 Alkaline Phosphatase 297 H D Total Protein 5.7 Albumin 3.8 Globulin 1.9 L Albumin/Globulin Ratio 2.0 ABG Interpretation ABG results: 07/14/25 15:48 ABG pH 7.45 ABG pCO2 38 ABG pO2 48 L* ABG HCO3 26 ABG O2 Saturation 86 L ABG Base Excess 2 Assessment & Plan Assessment and plan (1) Pneumonia: Status: Acute Additional Assessment & Plan Additional Plan: Florentin Kaufman 75M pmhx significant for dementia, HTN and CLL (discontinued treatment recently) who presents to [facility] ED 07/14 for altered mental status and fever, admitted for GINA and sepsis 2/2 unknown source vs febrile illness of CLL. # Fever probably related to underlying leukemia #CLL, treatment discontinued per patient and requested comfort care #GINA on CKD Patient presented with altered mental status and fever, Tmax on admission 103.3 ?F with tachycardia, WBC 1064 and desaturation to 93%. On admission ABG 7.45/38/48/26, troponin 0.049, LDH 963, procal 1.58. CXR shows mild HF no PNA, UA negative for infection. Cultures negative. #Goals of care #Dementia Patient's at bedside, opting for [place] with comfort measures. CODE STATUS is DNR Plan: - When patient is medically stable, will discharge to [place] with comfort measures - Morphine 1 mg q4h prn #HTN Taking amlodipine benazepril Hospital management: Lines: PIV Diet: dysphagia 3 Bowel: Lactulose, soapsuds enema GI prophylaxis: not indicated DVT prophylaxis: heparin q12 Disposition: tele for IV abx and IV pain meds CODE STATUS: DNR Admitted with fevers. So far cultures negative. Suspect related to underlying acute leukemia. Patient declining all treatments. He and his opted for comfort care. CODE STATUS changed to DNR/DNI. Will request rehab placement with comfort care. ventilation worker were alerted. Pending bowel movement.
[2025-07-18] VITALS (10 sets, daily range): BP systolic 145–159; BP diastolic 78–115; PULSE 87–115; RESP 12–26; TEMP 36–37; O2SAT 92–99; BMI 29.1
[2025-07-18] MEDS: ALBUTEROL/IPRATROPIUM (Duoneb) RT SOL 3 ML NEBU INH ×3 (01:30→12:14)
[2025-07-18] MEDS: FLUTICASONE/UMECLIDIN/VILANTEROL 100-62.5-25 MCG INHALER 1 PUFF INH (07:20)
[2025-07-18] MEDS: LACTULOSE SYRUP 20 GM/30 ML UDC 15 GM PO (08:14)
[2025-07-18] MEDS: TAMSULOSIN HCL 0.4 MG CAPSULE PO (08:15)
[2025-07-18] MEDS: DOCUSATE SOD LIQD 100 MG/10 ML UDC PO (08:15)
[2025-07-18] MEDS: HEPARIN SOD INJ 5000 UNIT/ML VIAL SC (08:19)
--- NOTE | 2025-07-18 08:33 | PC.SS ---
EDUCATIONAL RESOURCE COORDINATOR confirmed with bedside nurse that patient still pending bowel movement.
[2025-07-18] MEDS: guaiFENesin SYRUP 200 MG/10 ML UDC 100 MG PO (11:12)
--- NOTE | 2025-07-18 15:46 | PC.SS ---
Transport scheduled for 05:30 pm today.
--- NOTE | 2025-07-18 15:50 | PC.SS ---
PASSR submitted to [facility] via [employer].
--- NOTE | 2025-07-18 16:15 | PC.NURSE ---
Attempted to contact nursing facility to give report x3 attempts.
--- NOTE | 2025-07-18 16:53 | PC.NURSE ---
[facility] called and discharge report given to nurse Alexandria.
== END 2025-07-18 17:40 | disposition skilled nursing facility (03) | DRG 193 ==
LOC: SERX 17:20 → SERHOLD 21:38 → S2NX 07-15 01:18
PROVIDERS: Admitting Provider Internal Medicine; Emergency Provider Family Medicine; PCP Internal Medicine; Visit Provider Internal Medicine
DX: J18.9 Pneumonia, unspecified organism (principal); I21.A1 Myocardial infarction type 2; C91.10 Chronic lymphocytic leukemia of B-cell type not having achieved remission; N17.9 Acute kidney failure, unspecified; E87.6 Hypokalemia; F03.90 Unspecified dementia, unspecified severity, without behavioral disturbance, psychotic disturbance, mood disturbance, and anxiety; Z66 Do not resuscitate; I12.9 Hypertensive chronic kidney disease with stage 1 through stage 4 chronic kidney disease, or unspecified chronic kidney disease; N18.9 Chronic kidney disease, unspecified; Z51.5 Encounter for palliative care; Z87.891 Personal history of nicotine dependence
CPT/HCPCS: 36415; 36600; 51702; 71045; 80053; 81001; 82803; 83605; 83615; 83690; 83735; 83880; 84100; 84145; 84484; 85025; 85610; 85730; 87040; 87502; 87635; 92610; 93005; 94640; 94664; 94667; 96361; 96365; 96375; 99285; A4314; A9270; J0131; J0696; J1644; J2405; J2470; J2543; J3535; J7030; J7050; J7120